=== PATIENT | female | born 1945 | race Caucasian/White ===

== ENCOUNTER 2023-09-22 11:26 | Outpatient (AMB) | payer OTHER, MEDICARE, SELFPAY ==
[2023-09-22 11:34] VITALS: BP 120/60; BMI 26.4
--- NOTE | 2023-09-22 11:34 | HO.NEPHOV ---
HPI HPI Comments History of Present Illness Details I had the privilege of seeing Iliana in follow-up for chronic kidney disease. 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 She has history of diabetes mellitus. Her blood sugar is fairly well controlled. She is on lipid-lowering agents. She is closely followed by her target man and PCP. She denies any chest pain, shortness of breath, nausea vomiting or diarrhea, pedal edema or urinary symptoms. She has not had any recent medication changes. She denies any orthostasis. She remains well hydrated. [facility] Medical History (Updated 09/26/23 @ 05:56 by Roly Aleman MD) CKD (chronic kidney disease) Surgical History (Updated 09/22/23 @ 11:40 by Soledad Kaiser MA) History of hip replacement Social History (Updated 09/22/23 @ 11:40 by Soledad Kaiser MA) Alcohol intake: never Patient Tobacco Use Status: Never used Tobacco Vital Signs 09/22/23 11:34 Height 5 ft 2 in Weight 144 lb 2 oz BMI 26.4 BP 120/60 Blood Pressure Location Lt brachial Position Sitting Physical Exam Vital Signs: Last Vital Signs BP 120/60 09/22/23 11:34 BMI result Body Mass Index 26.4 Const General: comfortable and no acute distress Orientation/consciousness: patient oriented x3 HEENT Head: Yes normocephalic Mouth: Normal oral and palatal mucosa present Eyes EOM: EOMs intact bilaterally Neck Neck: Yes supple Resp Auscultation: clear to auscultation bilaterally Cardio Jugular venous distension: no JVD Rate: regular rate Heart sounds: Murmur heart sound present GI Palpation (GI): Soft to palpation Auscultation: normal bowel sounds General: Yes no CVA tenderness Back/Spine/Pelvis Back: no CVA tenderness Skin General skin exam: no rashes or lesions noted Neuro General: patient oriented x3 and moves all extremities Extrem General: Yes no pedal edema Assessment & Plan Assessment & Plan (1) CKD (chronic kidney disease) stage 3, GFR 30-59 ml/min: Code(s): N18.30 - Chronic kidney disease, stage 3 unspecified Qualifiers: Chronic kidney disease stage 3 subtype: stage 3a (GFR 45-59) Qualified Code(s): N18.31 - Chronic kidney disease, stage 3a Plan Franny has mild CKD. She is diabetic. Her blood sugars are fairly well controlled. Her blood pressure is at goal. Volume status optimal. She does not take any ebjr-pfr-jedrgha medications. She is a candidate for Farxiga was a plan to initiate at the next visit after reviewing her lab work. Her medications were changed. All questions answered. Time spent reviewing data, documentation and patient encounter 23 minutes. Orders: Orders Calcium 09/22/23 N18.30 - Chronic kidney disease, stage 3 unspecified Electrolytes 09/22/23 N18.30 - Chronic kidney disease, stage 3 unspecified Blood Urea Nitrogen 09/22/23 N18.30 - Chronic kidney disease, stage 3 unspecified Creatinine 09/22/23 N18.30 - Chronic kidney disease, stage 3 unspecified Coding Level of Care Code Est Pt Level 3 (39261) Diagnoses Stage 3a chronic kidney disease N18.31 Chronic kidney disease stage 3 subtype: stage 3a (GFR 45-59)
== END 2023-09-22 12:12 | disposition home or self-care (01) ==
PROVIDERS: PCP Internal Medicine; Visit Provider Internal Medicine Nephrology
DX: E11.22 Type 2 diabetes mellitus with diabetic chronic kidney disease (principal); N18.31 Chronic kidney disease, stage 3a; Z87.74 Personal history of (corrected) congenital malformations of heart and circulatory system
CPT/HCPCS: 99213

== ENCOUNTER → 2023-09-22 11:26 | Outpatient (BNVA) | payer OTHER, MEDICARE, SELFPAY | PROVIDERS: PCP Internal Medicine; Visit Provider Internal Medicine Nephrology ==

== ENCOUNTER 2024-03-23 13:34 | Outpatient (AMB) | payer MEDICARE, SELFPAY ==
--- NOTE | 2024-03-23 13:36 | HO.NEPHOV ---
Vital Signs 03/23/24 13:38 Height 5 ft 2 in Weight 168 lb 8 oz BMI 30.8 BP 110/50 L Blood Pressure Location Lt brachial Position Sitting Intake Visit Reasons: 6M follow up/ Confirmed Rn Chemical Dependency Required: No Accompanied by: Self / Same As Patient Allergies No Known Allergies Allergy (Verified 03/23/24 13:43) HPI Comments Details: I had the privilege of seeing Iliana in follow-up for chronic kidney disease. 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 She has history of diabetes mellitus. Her blood sugar is fairly well controlled. She is on lipid-lowering agents. She is closely followed by her rigging supervisor and PCP. She denies any chest pain, nausea vomiting or diarrhea, pedal edema or urinary symptoms. She recently had hospitalization for CHF. She was started on diuretics as well as metoprolol & Spironolactone . She denies any orthostasis. She feels improved. She weighs herself daily. [facility] Medical History (Updated 09/26/23 @ 05:56 by Roly Aleman MD) CKD (chronic kidney disease) Surgical History (Updated 09/22/23 @ 11:40 by Soledad Kaiser MA) History of hip replacement Social History (Updated 09/22/23 @ 11:40 by Soledad Kaiser MA) Alcohol intake: never Patient Tobacco Use Status: Never used Tobacco Physical Exam Const General: comfortable and no acute distress Orientation/consciousness: patient oriented x3 HEENT Head: Yes normocephalic Mouth: Normal oral and palatal mucosa present Eyes EOM: EOMs intact bilaterally Neck Neck: Yes supple Resp Auscultation: clear to auscultation bilaterally Cardio Jugular venous distension: no JVD Rate: regular rate GI Palpation (GI): Soft to palpation Auscultation: normal bowel sounds General: Yes no CVA tenderness Back/Spine/Pelvis Back: no CVA tenderness Skin General skin exam: no rashes or lesions noted Neuro General: patient oriented x3 and moves all extremities Extrem General: Yes no pedal edema Results Reviewed Nephrology Results: No Data to Display Assessment & Plan Assessment & Plan (1) CKD (chronic kidney disease) stage 3, GFR 30-59 ml/min: Code(s): N18.30 - Chronic kidney disease, stage 3 unspecified Category: Medical Qualifiers: Chronic kidney disease stage 3 subtype: stage 3a (GFR 45-59) Qualified Code(s): N18.31 - Chronic kidney disease, stage 3a Plan Iliana has mild CKD. She is diabetic. Her blood sugars are fairly well controlled. Her blood pressure is at goal. Volume status optimal. She does not take any egxm-stm-cegzhkw medications. She is on metoprolol , lasix and spironolactone. She is a candidate for Farxiga was a plan to initiate at the next visit after D/Cing metformin . All questions answered. Orders: Orders Creatinine Today N18.31 - Chronic kidney disease, stage 3a Electrolytes Today N18.31 - Chronic kidney disease, stage 3a Blood Urea Nitrogen Today N18.31 - Chronic kidney disease, stage 3a Coding Level of Care Code Est Pt Level 4 (78208) Diagnoses Stage 3a chronic kidney disease N18.31 Chronic kidney disease stage 3 subtype: stage 3a (GFR 45-59)
[2024-03-23 13:38] VITALS: BP 110/50; BMI 30.8
== END 2024-03-23 14:07 | disposition home or self-care (01) ==
LOC: HO.HKAS 13:34
PROVIDERS: PCP Internal Medicine; Visit Provider Internal Medicine Nephrology
DX: N18.31 Chronic kidney disease, stage 3a (principal)
CPT/HCPCS: 99214

== ENCOUNTER → 2024-03-23 13:34 | Outpatient (BNVA) | payer MEDICARE, SELFPAY | PROVIDERS: PCP Internal Medicine; Visit Provider Internal Medicine Nephrology | DX: E11.22 Type 2 diabetes mellitus with diabetic chronic kidney disease (principal); N18.31 Chronic kidney disease, stage 3a | CPT/HCPCS: 99212 ==

== ENCOUNTER 2024-09-21 09:53 | Outpatient (AMB) | payer MEDICARE, SELFPAY ==
--- NOTE | 2024-09-21 10:18 | HO.NEPHOV ---
Vital Signs 09/21/24 10:19 Height 5 ft 2 in Weight 146 lb BMI 26.7 BP 124/68 Blood Pressure Location Lt brachial Position Sitting Intake Visit Reasons: 6 mon follow up-[facility] Motor Tune Up Specialist Required: No Accompanied by: Self / Same As Patient Allergies No Known Allergies Allergy (Verified 09/21/24 10:19) HPI Comments Details: Iliana was seen in follow-up for chronic kidney disease. 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 She has history of diabetes mellitus. Her blood sugar is fairly well controlled. She is on lipid-lowering agents. She is closely followed by her groundskeeper and PCP. She denies any chest pain, nausea vomiting or diarrhea, pedal edema or urinary symptoms. She has H/O hospitalization for CHF. She was started on diuretics as well as metoprolol & Spironolactone . She denies any orthostasis. She feels improved. She weighs herself daily [facility] Medical History (Updated 09/26/23 @ 05:56 by Roly Aleman MD) CKD (chronic kidney disease) Surgical History History of hip replacement Social History Alcohol intake: never Patient Tobacco Use Status: Never used Tobacco Review of Systems Const All systems reviewed & are unremarkable except as noted in HPI and below Physical Exam Vital Signs: Last Vital Signs BP 124/68 09/21/24 10:19 BMI result Body Mass Index 26.7 Const General: comfortable and no acute distress Orientation/consciousness: patient oriented x3 HEENT Head: Yes normocephalic Mouth: Normal oral and palatal mucosa present Eyes EOM: EOMs intact bilaterally Neck Neck: Yes supple Resp Auscultation: clear to auscultation bilaterally Cardio Jugular venous distension: no JVD Rate: regular rate GI Palpation (GI): Soft to palpation Auscultation: normal bowel sounds General: Yes no CVA tenderness Back/Spine/Pelvis Back: no CVA tenderness Skin General skin exam: no rashes or lesions noted Neuro General: patient oriented x3 and moves all extremities Extrem General: Yes no pedal edema Results Reviewed Nephrology Results: No Data to Display Assessment & Plan Assessment & Plan (1) CKD (chronic kidney disease) stage 3, GFR 30-59 ml/min: Code(s): N18.30 - Chronic kidney disease, stage 3 unspecified Category: Medical Qualifiers: Chronic kidney disease stage 3 subtype: stage 3a (GFR 45-59) Qualified Code(s): N18.31 - Chronic kidney disease, stage 3a Carlos Barrientos has mild CKD. She is diabetic. Her blood sugars are fairly well controlled. Her blood pressure is at goal. Volume status optimal. She does not take any vnmy-wev-tlgxbjv medications. She is on metoprolol , lasix and spironolactone. I started her on Jardiance 10 mg daily. She can hold metformin . F/U labs ordered. All questions answered Orders: Orders Electrolytes 3 Months N18.31 - Chronic kidney disease, stage 3a Creatinine 3 Months N18.31 - Chronic kidney disease, stage 3a Blood Urea Nitrogen 3 Months N18.31 - Chronic kidney disease, stage 3a Medications: New empagliflozin (Jardiance) 10 mg PO DAILY 30 tabs 6RF Coding Level of Care Code Est Pt Level 4 (39305) Diagnoses Stage 3a chronic kidney disease N18.31 Chronic kidney disease stage 3 subtype: stage 3a (GFR 45-59)
[2024-09-21 10:19] VITALS: BP 124/68; BMI 26.7
== END 2024-09-21 10:48 | disposition home or self-care (01) ==
LOC: HO.HKAS 09:53
PROVIDERS: PCP Internal Medicine; Visit Provider Internal Medicine Nephrology
DX: N18.31 Chronic kidney disease, stage 3a (principal)
CPT/HCPCS: 99214

== ENCOUNTER → 2024-09-21 09:53 | Outpatient (BNVA) | payer MEDICARE, SELFPAY | PROVIDERS: PCP Internal Medicine; Visit Provider Internal Medicine Nephrology | DX: N18.31 Chronic kidney disease, stage 3a (principal); Z79.899 Other long term (current) drug therapy | CPT/HCPCS: 99212 ==

== ENCOUNTER 2025-04-07 10:12 | Outpatient (AMB) | payer MEDICARE, SELFPAY ==
--- NOTE | 2025-04-07 10:17 | HO.NEPHOV ---
Vital Signs 04/07/25 10:39 Height 5 ft 2 in Weight 138 lb 8 oz BMI 25.3 BP 122/60 Blood Pressure Location Lt brachial Position Sitting Intake Visit Reasons: [id number] Youth Coordinator Required: No Accompanied by: Self / Same As Patient Allergies No Known Allergies Allergy (Verified 04/07/25 10:38) HPI Comments Details: Iliana was seen in follow-up for chronic kidney disease. 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 She has history of diabetes mellitus. Her blood sugar is fairly well controlled. She is on lipid-lowering agents. She is closely followed by her tank truck milk receiver and PCP. She denies any chest pain, nausea vomiting or diarrhea, pedal edema or urinary symptoms. She has H/O hospitalization for CHF. She is on metoprolol & Spironolactone . Her K is high and her serum creatinine has gone up from baseline. She denies any orthostasis. She feels improved. She weighs herself daily [facility] Medical History (Updated 09/26/23 @ 05:56 by Roly Aleman MD) CKD (chronic kidney disease) Surgical History History of hip replacement Social History Alcohol intake: never Patient Tobacco Use Status: Never used Tobacco Review of Systems Const All systems reviewed & are unremarkable except as noted in HPI and below Physical Exam Vital Signs: Last Vital Signs BP 122/60 04/07/25 10:39 BMI result Body Mass Index 25.3 Const General: comfortable and no acute distress Orientation/consciousness: patient oriented x3 HEENT Head: Yes normocephalic Mouth: Normal oral and palatal mucosa present Eyes EOM: EOMs intact bilaterally Neck Neck: Yes supple Resp Auscultation: clear to auscultation bilaterally Cardio Jugular venous distension: no JVD Rate: regular rate GI Palpation (GI): Soft to palpation Auscultation: normal bowel sounds General: Yes no CVA tenderness Back/Spine/Pelvis Back: no CVA tenderness Skin General skin exam: no rashes or lesions noted Neuro General: patient oriented x3 and moves all extremities Extrem General: Yes no pedal edema Results Reviewed Nephrology Results: No Data to Display Assessment & Plan Assessment & Plan (1) CKD (chronic kidney disease) stage 3, GFR 30-59 ml/min: Code(s): N18.30 - Chronic kidney disease, stage 3 unspecified Category: Medical Qualifiers: Chronic kidney disease stage 3 subtype: stage 3a (GFR 45-59) Qualified Code(s): N18.31 - Chronic kidney disease, stage 3a Plan Iliana has mild CKD. She is diabetic. Her blood sugars are fairly well controlled. Her blood pressure is at goal. Volume status optimal. She does not take any izds-ywd-veisqgk medications. She is on metoprolol and spironolactone. I started her back on lasix 20 mg barrett other day and held her Spironolactone given hyperkalemia.She can continue on Jardiance 10 mg daily. She can hold metformin . F/U labs ordered. All questions answered Orders: Orders Protein Creatinine Ratio, Ur 3 Months N18.31 - Chronic kidney disease, stage 3a Creatinine 3 Months N18.31 - Chronic kidney disease, stage 3a Electrolytes 3 Months N18.31 - Chronic kidney disease, stage 3a Blood Urea Nitrogen 3 Months N18.31 - Chronic kidney disease, stage 3a Electrolytes 6 Weeks N18.31 - Chronic kidney disease, stage 3a Blood Urea Nitrogen 6 Weeks N18.31 - Chronic kidney disease, stage 3a Creatinine 6 Weeks N18.31 - Chronic kidney disease, stage 3a Medications: New furosemide 20 mg PO Q OTHER DAY 90 tabs 3RF Coding Level of Care Code Est Pt Level 4 (71503) Diagnoses Stage 3a chronic kidney disease N18.31 Chronic kidney disease stage 3 subtype: stage 3a (GFR 45-59)
--- OUTSIDE RECORDS SUMMARY | 2025-04-07 10:38 | XMS_ITS | Clinical Summary ---
Author Organization [email or web address] Address [address] [place] [address] Care Team Providers Care Client Integration Manager Name Role Phone Megha Mooney MD Primary Care Provider [phone] Surgical History Surgery Date Site/Laterality Comments TIBIA FRACTURE SURGERY PROCEDURE:TIBIA FRACTURE SURGERY APPENDECTOMY PROCEDURE:APPENDECTOMY Medical History Medical History Date Comments Hyperlipidemia DX:Hyperlipidemi a Hypertension DX:Hypertension Heart murmur DX:Heart murmur Valvular disease DX:Valvular dis ease Congenital heart disease DX:Jean enital heart disease 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);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 Aortic regurgitation DX:Aortic r egurgitation;COMMENT:now not apparent-echo 2015 Tricuspid regurgitation DX:Tricu spid regurgitation Hx of echocardiogram 03/2018 DX:Hx of ec hocardiogram;COMMENT:no change; ef -45% mild to mod 'TR'/MR Abnormal EKG DX:Abnormal EKG Pulmonary embolism (CMS/HCC V24, CMS/HCC V28) DX:Pulmonary embolism (HCC) Pulmonary embolism (CMS/HCC V24, CMS/HCC V28) DX:Pulmonary embolism (HCC) Diabetes mellitus (CMS/HCC V 24, CMS/HCC V28) DX:Diabetes mellitus (HCC) Acute renal insufficiency DX:Acu te renal insufficiency Hyperlipidemia DX:Hyperlipidemi a Social History Tobacco Use Types Packs/Day Years Used Date Smoking Tobacco: Never Smokeless Tobacco: Never Alcohol Use Standard Drinks/Week Comments No 0 (1 standard drink = 0.6 oz pur e alcohol) Comments Unknown Sex and Gender Information Value Date Recorded Sex Assigned at Not on file Legal Sex Female 11:09 AM EST Gender Identity Not on file Sexual Orientation Not on file Obstetrics History Last Filed Vital Signs Vital Sign Reading Time Taken Comments Blood Pressure 128/80 05/24/2024 2:13 PM EDT Pulse 86 05/24/2024 2:13 PM EDT Temperature - - Respiratory Rate - - Oxygen Saturation - - Inhaled Oxygen Concentration - - Weight 63 kg (139 lb) 05/24/2024 2:13 PM EDT Height 157.5 cm (5' 2 ) 05/24/2024 2:13 PM EDT Body Mass Index 25.42 05/24/2024 2:13 PM EDT Plan of Treatment Upcoming Encounters Date Type Department Care Team ([facility] st Contact Info) Description 04/25/2025 12:00 PM EDT Office Visit [facility] - [place] [address] [facility] [address] [place] [address] Omid Stafford MD [address] [facility] [address] [place], [place] [id number] Health Maintenance Due Date Last Done Comments DTaP,Tdap,and Td Vaccines (1 - Tdap) 1966 Pneumococcal Vaccine: 50+ Years (1 of 2 - PCV) 1966 Zoster Vaccines (1 of 2) 1997 RSV Immunization Adult Patients (1 - 1-dose 75+ series) 2022 Cholesterol Screening (Lipid Panel) 10/25/2022 Depression Screening 10/25/2022 Falls Risk Assessment 10/25/2022 Hepatitis C Screening 10/25/2022 Osteoporosis Screening (Bone Density Screening) 10/25/2022 Social Influencers of Health Screening 10/25/2022 Hypertension/CHF/CAD Annual BMP Blood Test 10/27/2022 COVID-19 Vaccine ( - 2023-2 5 season) 2024 Medicare Annual Wellness Visit 07/28/2024 07/28/2023 Influenza Vaccine (Season Ended) 2025 07/31/2020, 07/22/2019 HIB Vaccines Aged Out No longer eligi ble based on patient's age to complete this topic HPV Vaccines Aged Out No longer eligi ble based on patient's age to complete this topic Hepatitis A Vaccines Aged Out No long er eligible based on patient's age to complete this topic Hepatitis B Vaccines Aged Out No long er eligible based on patient's age to complete this topic IPV Vaccines Aged Out No longer eligi ble based on patient's age to complete this topic MMR Vaccines Aged Out No longer eligi ble based on patient's age to complete this topic Meningococcal ACWY Vaccine Aged Out N o longer eligible based on patient's age to complete this topic Meningococcal B Vaccine Aged Out No l onger eligible based on patient's age to complete this topic RSV Immunization Patients Under 20 months Aged Out No longer eligible b ased on patient's age to complete this topic Varicella Vaccines Aged Out No longer eligible based on patient's age to complete this topic Insurance MEDICARE Care Teams Client Integration Manager Relationship Specialty Start Date End Date Megha Mooney MD [address] [place] [address] PCP - General Internal Medicine 01/24/16
--- OUTSIDE RECORDS SUMMARY | 2025-04-07 10:38 | XMS_ITS | Clinical Summary ---
Author Organization [facility] Address [address] [place] [address] Care Team Providers Care Slip Caster Name Role Phone Megha Mooney MD Primary Care Provider [phone] Allergies Active Allergy Reactions Criticality Noted Date Comments Alcohol Hives 12/30/2016 Kiwi Hives 12/30/2016 Medications Medication Sig Dispensed Refills Start Date End Date Status Insulin Syringe-Needle U-100 (INSULIN SYRINGE 1CC/30GX5/16 ) 30G X 5/16 1 ML MISC Use with the Lantus daily 100 each 6 01/03/2017 Active metFORMIN (GLUCOPHAGE) tablet 500 mg TAKE ONE TABLET BY MOUTH TWICE DAILY WITH MEALS 60 tablet 11 02/19/2018 Active Additional Information Patient taking differently: 500 mg Oral Daily, Reason: Other (pt. takes once a day, instead of BID), Reported on 03/05/2024 LANTUS 100 UNIT/ML injection Inject 20 Units under the skin every night at bedtime. 0 02/16/2018 Active nortriptyline (PAMELOR) 25 MG capsule Take 1 capsule (25 mg total) by mouth daily. 0 01/14/2022 Active furosemide (LASIX) 20 MG tablet Take 1 tablet (20 mg total) by mouth daily. 0 02/23/2024 Active metoprolol succinate (TOPROL-XL) 24 hr tablet 50 mg Take 1 tablet (50 mg total) by mouth daily. 0 02/23/2024 Active spironolactone (ALDACTONE) tablet 25 mg Take 1 tablet (25 mg total) by mouth daily. 0 02/23/2024 Active rosuvastatin (CRESTOR) tablet 20 mg Take 1 tablet by mouth once daily 90 tablet 3 04/30/2024 Active Active Problems Problem Noted Date Diagnosed Date Anemia 04/03/2018 Chronic renal disease, stage II 03/24/2018 Hypercoagulable state 03/24/2018 Dilated cardiomyopathy 03/24/2018 Essential hypertension 12/23/2017 Non-rheumatic mitral regurgitation 12/23/2017 Nonrheumatic aortic valve insufficiency 12/23/19 18 History of pulmonary embolism 12/23/2017 Bilateral leg edema 12/23/2017 Pulmonary embolism 12/30/2016 Hyperglycemia 12/30/2016 ABRAHAM (acute kidney injury) 12/30/2016 Hyponatremia 12/30/2016 Syncope 12/30/2016 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 12/24/2016 Non-rheumatic tricuspid valve insufficiency 05/2017 SANFORD (dyspnea on exertion) 12/24/2016 Essential hypertension, benign 12/19/2015 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) 12/19/2015 Hyperlipemia 12/19/2015 Congenital heart disease 12/19/2015 Abnormal EKG 12/19/2015 Shortness of breath dyspnea 12/19/2015 Social History Tobacco Use Types Packs/Day Years Used Date Smoking Tobacco: Never Passive Smoke Exposure: Never Smokeless Tobacco: Never Tobacco Cessation:Counseling Given: Not Answered Alcohol Use Standard Drinks/Week Comments No 0 (1 standard drink = 0.6 oz pur e alcohol) Sex and Gender Information Value Date Recorded Sex Assigned at Female 08/02/2024 11:03 AM EDT Gender Identity Not on file Sexual Orientation Not on file Job Start Date Occupation Industry Not on file Not on file Not on file Last Filed Vital Signs Vital Sign Reading Time Taken Comments Blood Pressure 128/80 05/24/2024 2:13 PM EDT Pulse 86 05/24/2024 2:13 PM EDT Temperature 36.3 ??C (97.3 ??F) 04/03/2022 1:25 PM ED T Respiratory Rate 22 01/03/2017 8:03 AM EST Oxygen Saturation 97% 05/24/2024 2:13 PM EDT Inhaled Oxygen Concentration - - Weight 63 kg (139 lb) 05/24/2024 2:13 PM EDT Height 157.5 cm (5' 2 ) 05/24/2024 2:13 PM EDT Body Mass Index 25.42 05/24/2024 2:13 PM EDT Plan of Treatment Health Maintenance Due Date Last Done Comments Hepatitis C Screening 1945 COVID-19 Vaccine (#1) 1945 Pneumococcal Vaccine (1 of 2 - PCV) 1953 Depression Screening 1959 Preventative Health Evaluation 1965 DTap / Tdap / Td (1 - Tdap) 1966 Shingrix-Zoster Vaccine (1 of 2) 1997 Fall Risk Assessment 2012 Osteoporosis Screening (DEXA Scan) 2012 RSV Adult > 60+ Yrs or Pregn ant (1 - 1-dose 75+ series) 2022 Influenza Vaccine (#1) 2024 Hepatitis B Vaccines Aged Out No long er eligible based on patient's age to complete this topic RSV Ped < 20 months Aged Out No longe r eligible based on patient's age to complete this topic Advance Directives For more information, please contact: [phone] Latest Code Status on File Code Status Date Activated Date Inactivated Comments DNR 12/30/2016 10:56 PM 01/03/2017 5:59 PM This code status was ascertained in the following way: discussion with patient. Code Status History Code Status Date Activated Date Inactivated Comments Full Code 12/30/2016 7:37 PM 12/30/2016 10:56 PM This code status was ascertained in the following way: discussion with patient. Care Teams Slip Caster Relationship Specialty Start Date End Date Megha Mooney MD [address] [place] [id number] PCP - General Internal Medicine 01/24/16
--- OUTSIDE RECORDS SUMMARY | 2025-04-07 10:38 | XMS_ITS | Clinical Summary ---
Author Organization [facility] Address [address] [facility] [address] [place] [address] Phone Care Team Providers Care Director Of Integrated Marketing Name Role Phone Megha Mooney MD Primary Care Provider [phone] Allergies Active Allergy Reactions Criticality Noted Date Comments Alcohol Hives,Other (see comments) 7 Kiwi Extract Hives 12/30/2016 Medications aspirin (ST ENRIKE) 81 MG EC tablet Take 1 tablet by mouth 1 (one) time each day Active insulin glargine (Lantus) 100 UNIT/ML injection Inject 10 Units under the skin 1 (one) time each day Active metFORMIN (GLUCOPHAGE) 500 MG tablet Take 1 tablet by mouth 2 (two) times a day 01/25/2019 Active nortriptyline (PAMELOR) 25 MG capsule Take 1 capsule by mouth at bed time Active rosuvastatin (CRESTOR) 20 MG tablet Take 1 tablet by mouth 1 (one) time each day 08/18/2020 Active Active Problems Problem Noted Date Diagnosed Date Acute nontraumatic kidney injury 04/10/2021 Stage 3a chronic kidney disease 04/10/2021 Anemia 04/03/2018 Acute nontraumatic kidney injury 12/30/2016 Hyponatremia 12/30/2016 Benign essential hypertension 12/19/2015 Resolved Problems Problem Noted Date Diagnosed Date Resolved Date Dilated cardiomyopathy 03/24/201804/10 Hypercoagulable state 03/24/20182020 Bilateral lower limb edema 12/23/2017 0 04/10/2021 H/O: pulmonary embolus 12/23/201704/10 Nonrheumatic aortic valve insufficiency 12/23/2017 04/10/2021 Non-rheumatic mitral regurgitation 12/23/2017 04/10/2021 Hyperglycemia 12/30/2016 04/10/2021 Pulmonary embolism 12/30/2016 1 Syncope 12/30/2016 04/10/2021 Dyspnea on exertion 12/24/2016 04/10/20 21 Tricuspid incompetence, non-rheumatic 12/24/2016 04/10/2021 Congenital heart disease 12/19/2015 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 04/10/2021 Dyspnea 12/19/2015 04/10/2021 Electrocardiogram abnormal 12/19/2015 0 04/10/2021 Hyperlipidemia 12/19/2015 04/10/2021 Family History Medical History Relation Comments Heart disease Father Diabetes Mother Type II Heart disease Mother Relation Status Comments Father Mother Alive Social History Tobacco Use Types Packs/Day Years Used Date Smoking Tobacco: Never Smokeless Tobacco: Never Tobacco Cessation:Counseling Given: Not Answered Alcohol Use Standard Drinks/Week Comments No 0 (1 standard drink = 0.6 oz pur e alcohol) Comments Unknown Sex and Gender Information Value Date Recorded Sex Assigned at Not on file Legal Sex Female 9:37 AM EDT Gender Identity Not on file Sexual Orientation Not on file Last Filed Vital Signs Vital Sign Reading Time Taken Comments Blood Pressure 122/60 09/09/2022 3:09 PM EDT Pulse 86 09/09/2022 3:09 PM EDT Temperature - - Respiratory Rate - - Oxygen Saturation 97% 10/15/2021 2:38 PM EST Inhaled Oxygen Concentration - - Weight 69.1 kg (152 lb 6.4 oz) 09/09/2022 3:09 P M EDT Height 158.8 cm (5' 2.5 ) 05/09/2020 12:00 PM ED T Body Mass Index 27.43 05/09/2020 12:00 PM EDT Plan of Treatment Health Maintenance Due Date Last Done Comments Pneumococcal Vaccine: 50+ Ye ars (1 of 2 - PCV) 1964 Influenza Vaccine (Season Ended) 2025 Hepatitis B Vaccine Aged Out No longe r eligible based on patient's age to complete this topic Insurance [address] [place] [address] [facility] Medicare [address] [place] [address] [facility] Medicare Care Teams Director Of Integrated Marketing Relationship Specialty Start Date End Date Megha Mooney MD [address] [place] [address], [address] [place] [address] PCP - General 11/27/20
--- OUTSIDE RECORDS SUMMARY | 2025-04-07 10:38 | XMS_ITS ---
Author Name [facility] Organization Unknown History of Medication Use Medication Directions Dispensed Refills Start Date End Date Stat metoprolol succinate (TOPROL-XL) 24 hr tablet 50 mg Take 1 tablet (50 mg total) by mouth daily. 02/23/2024 active nortriptyline (PAMELOR) 25 MG capsule Take 1 capsule (25 mg total) by mouth daily. 01/14/2022 active metFORMIN (GLUCOPHAGE) tablet 500 mg TAKE ONE TABLET BY MOUTH TWICE DAILY WITH MEALS 02/19/2018 active LANTUS 100 UNIT/ML injection Inject 20 Units under the skin every night at bedtime. 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 active 7 ProblemAct CTTHNEMG Abnormal EKG active 2 ProblemAct CTTHNEMG Bilateral leg edema active 6 ProblemAct CTTHNEMG History of pulmonary embolism active 6 ProblemAct CTTHNEMG Hyponatremia active 2016-12-18 3 ProblemAct CTTHNEMG Congenital heart disease active 2015-12 2 ProblemAct CTTHNEMG Hypercoagulable state active 8 ProblemAct CTTHNEMG Non-rheumatic mitral regurgitation active 6 ProblemAct CTTHNEMG Shortness of breath dyspnea active 2 ProblemAct CTTHNEMG Essential hypertension active 6 ProblemAct CTTHNEMG Nonrheumatic aortic valve insufficiency active 6 ProblemAct CTTHNEMG ABRAHAM (acute kidney injury) active 2016-12-18 3 ProblemAct CTTHNEMG Anemia active 2018-03-17 8 ProblemAct CTTHNEMG Hyperglycemia active 2016-12-18 3 ProblemAct CTTHNEMG Non-rheumatic tricuspid valve insufficiency active 7 ProblemAct CTTHNEMG Pulmonary embolism active 2016-12-18 3 ProblemAct CTTHNEMG Chronic renal disease, stage II active 8 ProblemAct CTTHNEMG HFrEF (heart failure with reduced ejection fraction) (HCC) active EncounterDiagnosisAct CTT HNEMG Hyperlipemia active 2 ProblemAct CTTHNEMG Dilated cardiomyopathy active 8 ProblemAct CTTHNEMG Pure hypercholesterolemia active EncounterDiagnosisAct CTTHNEMG SANFORD (dyspnea on exertion) active 7 ProblemAct CTTHNEMG
[2025-04-07 10:39] VITALS: BP 122/60; BMI 25.3
== END 2025-04-07 11:05 | disposition home or self-care (01) ==
LOC: HO.HKAS 10:12
PROVIDERS: PCP Internal Medicine; Visit Provider Internal Medicine Nephrology
DX: N18.31 Chronic kidney disease, stage 3a (principal)
CPT/HCPCS: 99214

== ENCOUNTER → 2025-04-07 10:12 | Outpatient (BNVA) | payer MEDICARE, SELFPAY | PROVIDERS: PCP Internal Medicine; Visit Provider Internal Medicine Nephrology | DX: E11.22 Type 2 diabetes mellitus with diabetic chronic kidney disease (principal); N18.31 Chronic kidney disease, stage 3a; Z79.899 Other long term (current) drug therapy | CPT/HCPCS: 99212 ==

== ENCOUNTER 2025-07-12 10:09 | Outpatient (AMB) | payer MEDICARE, SELFPAY ==
--- NOTE | 2025-07-12 10:48 | HO.NEPHOV_ITS ---
Vital Signs 07/12/25 10:50 Height 5 ft 2 in Weight 144 lb 6 oz BMI 26.4 BP 118/60 Blood Pressure Location Lt brachial Position Sitting Pulse 58 Pulse Source Pulse Oximeter Pulse Oximetry (%) 94 Oxygen Delivery Method Room Air Intake Visit Reasons: 3 mo follow up-[facility] Gis Analyst Required: No Accompanied by: Self / Same As Patient Allergies No Known Allergies Allergy (Verified 07/12/25 10:49) HPI Comments Details: Iliana was seen in follow-up for chronic kidney disease. 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 She has history of diabetes mellitus. Her blood sugar is fairly well controlled. She is on lipid-lowering agents. She is closely followed by her electrical maintenance engineer and PCP. She denies any chest pain, nausea vomiting or diarrhea, pedal edema or urinary symptoms. She has H/O hospitalization for CHF. She is on metoprolol & Spironolactone .She denies any orthostasis.She weighs herself daily. She has had high A1c and was started on Metformin 500 mg daily. She is on Jardiance 10 mg as well . Her HbA1c had improved from 11 to 8.0 [facility] Medical History (Updated 09/26/23 @ 05:56 by Roly Aleman MD) CKD (chronic kidney disease) Surgical History History of hip replacement Social History Alcohol intake: never Patient Tobacco Use Status: Never used Tobacco Review of Systems Const All systems reviewed & are unremarkable except as noted in HPI and below Physical Exam Const General: comfortable and no acute distress Orientation/consciousness: patient oriented x3 HEENT Head: Yes normocephalic Mouth: Normal oral and palatal mucosa present Eyes EOM: EOMs intact bilaterally Neck Neck: Yes supple Resp Auscultation: clear to auscultation bilaterally Cardio Jugular venous distension: no JVD Rate: regular rate GI Palpation (GI): Soft to palpation Auscultation: normal bowel sounds General: Yes no CVA tenderness Back/Spine/Pelvis Back: no CVA tenderness Skin General skin exam: no rashes or lesions noted Neuro General: patient oriented x3 and moves all extremities Extrem General: Yes no pedal edema Assessment & Plan Assessment & Plan (1) CKD (chronic kidney disease) stage 3, GFR 30-59 ml/min: Code(s): N18.30 - Chronic kidney disease, stage 3 unspecified Category: Medical Qualifiers: Chronic kidney disease stage 3 subtype: stage 3a (GFR 45-59) Qualified Code(s): N18.31 - Chronic kidney disease, stage 3a Plan Iliana has mild CKD. She is diabetic. Her blood sugars are better controlled now. Her blood pressure is at goal. Volume status optimal. She does not take any [id number] medications. She is on metoprolol and spironolactone and lasix 20 mg barrett other day .I increased her Jardiance to 25 mg daily. She can hold metformin when her A1c is better. F/U labs ordered. All questions answered Orders: Orders Creatinine 4 Months N18.31 - Chronic kidney disease, stage 3a Electrolytes 4 Months N18.31 - Chronic kidney disease, stage 3a Hemoglobin A1c 4 Months N18.31 - Chronic kidney disease, stage 3a Blood Urea Nitrogen 4 Months N18.31 - Chronic kidney disease, stage 3a Protein Creatinine Ratio, Ur 4 Months N18.31 - Chronic kidney disease, stage 3a Medications: Changed From empagliflozin (Jardiance) 10 mg PO DAILY 30 tabs 11RF To empagliflozin 25 mg PO DAILY 30 tabs 11RF 30 days Coding Level of Care Code Est Pt Level 4 (50733) Diagnoses Stage 3a chronic kidney disease N18.31 Chronic kidney disease stage 3 subtype: stage 3a (GFR 45-59)
[2025-07-12 10:50] VITALS: BP 118/60; PULSE 58; O2SAT 94; BMI 26.4
--- OUTSIDE RECORDS SUMMARY | 2025-07-12 10:52 | XMS_ITS ---
Author Name [facility] Organization Unknown History of Medication Use Medication Directions Dispensed Refills Start Date End Date Stat Jardiance 10 mg tablet Take 1 tablet (10 mg total) by mouth 1 (one) time each day. 04/15/2025 active metoprolol succinate (TOPROL-XL) 24 hr tablet 50 mg Take 1 tablet (50 mg total) by mouth daily. 02/23/2024 active nortriptyline (PAMELOR) 25 MG capsule Take 1 capsule (25 mg total) by mouth daily. 01/14/2022 active nortriptyline (PAMELOR) 25 mg capsule Take 1 capsule (25 mg total) by mouth 1 (one) time each day. 02/08/2019 active metFORMIN (GLUCOPHAGE) 500 mg tablet Take 1 tablet (500 mg total) by mouth 2 (two) times a day. 02/19/2018 active metFORMIN (GLUCOPHAGE) tablet 500 mg TAKE ONE TABLET BY MOUTH TWICE DAILY WITH MEALS 02/19/2018 active LANTUS 100 UNIT/ML injection Inject 20 Units under the skin every night at bedtime. 02/16/2018 active aspirin 81 mg EC tablet Take 1 tablet (81 mg total) by mouth 1 (one) time each day. active furosemide (LASIX) 20 mg tablet Take 1 tablet (20 mg total) by mouth every other day. active Lantus U-100 Insulin 100 unit/mL injection Inject 20 Units under the skin at bedtime. active metoprolol succinate (TOPROL-XL) 50 mg 24 hr tablet Take 1 tablet (50 mg total) by mouth 1 (one) time each day. active rosuvastatin (CRESTOR) 20 mg tablet Take 1 tablet (20 mg total) by mouth 1 (one) time each day. active Allergies Allergen Reaction Severity Comment Documented Date Source Statu s KIWI HIVES 12/30/2016 CTTHNEMG active KIWI (ACTINIDIA CHINENSIS) HIVES 12/30/2016 CT_THSFRAN active ALCOHOL OTHER CT_THSFRAN Problems Problem Status Onset Date Problem Type Date of Resolution Source Syncope active ProblemAct CTTHNEMG Shortness of breath dyspnea active ProblemAct CTTHNEMG Essential hypertension active ProblemAct CTTHNEMG Congenitally corrected transposition of great arteries active ProblemAct CT_THSFRAN History of pulmonary embolism active ProblemAct CTTHNEMG Chronic combined systolic and diastolic congestive heart failure (CMS/HCC V24, CMS/HCC V28) active ProblemAct CT_THSFRAN Hyponatremia active ProblemAct CTTHNEMG Non-rheumatic mitral regurgitation active ProblemAct CTTHNEMG Congenital heart disease active 2015-12 ProblemAct CTTHNEMG SANFORD (dyspnea on exertion) active ProblemAct CTTHNEMG DCM (dilated cardiomyopathy) (CMS/HCC V24, CMS/HCC V28) active ProblemAct CT_THSFRAN HFrEF (heart failure with reduced ejection fraction) ([facility]) active EncounterDiagnosisAct CTT HNEMG Hyperglycemia active ProblemAct CTTHNEMG SANFORD (dyspnea on exertion) active EncounterDiagnosisAct CT_THS [place] Chronic renal disease, stage II active ProblemAct CTTHNEMG Non-rheumatic tricuspid valve insufficiency active ProblemAct CTTHNEMG 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 active ProblemAct CTTHNEMG Shortness of breath active ProblemAct CT_THSFRAN ABRAHAM (acute kidney injury) active ProblemAct CTTHNEMG History of pulmonary embolism active ProblemAct CT_THSFRAN Anemia active ProblemAct CTTHNEMG Hypercoagulable state active ProblemAct CTTHNEMG Pulmonary hypertension (CMS/HCC V24, CMS/HCC V28) active ProblemAct CT_THSFRAN Hyperlipemia active ProblemAct CTTHNEMG Bilateral leg edema active ProblemAct CTTHNEMG Pure hypercholesterolemia active EncounterDiagnosisAct CTTHNEMG Abnormal EKG active ProblemAct CTTHNEMG Nonrheumatic aortic valve insufficiency active ProblemAct CTTHNEMG Pulmonary embolism active ProblemAct CTTHNEMG Dilated cardiomyopathy active ProblemAct CTTHNEMG Encounters Encounter Type Encounter Reason Primary Diagnosis Location Date Ambulatory Cardiomyopathy Shortness of breath [facility] 04/25/2025 Care Team Organization Name Specialty Phone Email Start Date End Da te [facility] 04/26/2025 [facility] 04/25/2025
--- OUTSIDE RECORDS SUMMARY | 2025-07-12 10:52 | XMS_ITS | Clinical Summary ---
Author Organization [facility] [place] Address [address] [place] [address] Phone Care Team Providers Care Wooden Box Maker Name Role Phone Megha Mooney MD Primary Care Provider [phone] Allergies Active Allergy Reactions Criticality Noted Date Comments Alcohol Hives,Other 12/30/2016 Kiwi (Actinidia Chinensis) Hives 7 Medications aspirin 81 mg EC tablet Take 1 tablet (81 mg total) by mouth 1 (one) time each day. Active Jardiance 10 mg tablet Take 1 tablet (10 mg total) by mouth 1 (one) time each day. 5 Active furosemide (LASIX) 20 mg tablet Take 1 tablet (20 mg total) by mouth every other day. Active Lantus U-100 Insulin 100 unit/mL injection Inject 20 Units under the skin at bedtime. Active metFORMIN (GLUCOPHAGE) 500 mg tablet Take 1 tablet (500 mg total) by mouth 2 (two) times a day. 8 Active metoprolol succinate (TOPROL-XL) 50 mg 24 hr tablet Take 1 tablet (50 mg total) by mouth 1 (one) time each day. Active nortriptyline (PAMELOR) 25 mg capsule Take 1 capsule (25 mg total) by mouth 1 (one) time each day. 9 Active rosuvastatin (CRESTOR) 20 mg tablet Take 1 tablet by mouth once daily 90 tablet 2 5 Active rosuvastatin (CRESTOR) 20 mg tablet Take 1 tablet (20 mg total) by mouth 1 (one) time each day. 06/14/20 25 Discontinued Active Problems Problem Noted Date Diagnosed Date Shortness of breath 04/25/2025 DCM (dilated cardiomyopathy) (CMS/HCC V24, CMS/H CC V28) 04/25/2025 Chronic combined systolic an d diastolic congestive heart failure (CMS/HCC V24, CMS/HCC V28) 04/25/2025 Congenitally corrected transposition of great ar teries 04/25/2025 History of pulmonary embolism 04/25/2025 Pulmonary hypertension (CMS/HCC V24, CMS/HCC V28 ) 04/25/2025 Encounters Date Type Department Care Team Description 04/25/2025 12:00 PM EDT Office Visit [facility] [place] [address] [place] [phone] Omid Stafford MD Shortness of breath (Primary Dx); DCM (dilated cardiomyopathy) (CMS/HCC V24, CMS/HCC V28); Chronic combined systolic and diastolic congestive heart failure (CMS/HCC V24, CMS/HCC V28); Congenitally corrected transposition of great arteries; History of pulmonary embolism; Pulmonary hypertension (CMS/HCC V24, CMS/HCC V28); SANFORD (dyspnea on exertion) from Last 3 Months Surgical History Surgery Date Site/Laterality Comments TIBIA [...] Sign Reading Time Taken Comments Blood Pressure 126/56 04/25/2025 11:45 AM EDT Pulse 54 04/25/2025 11:45 AM EDT Temperature - - Respiratory Rate - - Oxygen Saturation 97% 04/25/2025 11:45 AM EDT Inhaled Oxygen Concentration - - Weight 63 kg (139 lb) 04/25/2025 11:45 AM EDT Height 157.5 cm (5' 2 ) 04/25/2025 11:45 AM EDT Body Mass Index 25.42 04/25/2025 11:45 AM EDT Plan of Treatment Upcoming Encounters Date Type Department Care Team (Late st Contact Info) Description 07/22/2025 11:15 AM EDT Ancillary Procedure [facility] [address] [phone] 10/31/2025 11:30 AM EST [facility] [address] [phone] Omid Stafford MD [address] [place] [address] Health Maintenance Due Date Last Done Comments DTaP,Tdap,and Td Vaccines (1 - Tdap) 1964 Pneumococcal Vaccine: 50+ Years (1 of 2 - PCV) 1966 Zoster Vaccines (1 of 2) 1997 RSV Immunization Adult Patients (1 - 1-dose 75+ series) 2022 Cholesterol Screening (Lipid Panel) 10/25/2022 Falls Risk Assessment 10/25/2022 Hepatitis C Screening 10/25/2022 Osteoporosis Screening (Bone Density Screening) 10/25/2022 Social Influencers of Health Screening 10/25/2022 Hypertension/CHF/CAD Annual BMP Blood Test 10/27/2022 COVID-19 Vaccine ( - 2023-2 5 season) 2024 Medicare Annual Wellness Visit 07/28/2024 07/28/2023 Depression Screening 11/17/2024 Influenza Vaccine (#1) 2025 0, 07/22/2019 HIB Vaccines Aged Out No longer [...] on patient's age to complete this topic Procedures Procedure Name Priority Date/Time Associated Diagnosis Comments ECG 12-LEAD Routine 04/25/2025 12:13 PM EDT Shortness of breath DCM (dilated cardiomyopathy) (CMS/HCC V24, CMS/HCC V28) Chronic combined systolic and diastolic congestive heart failure (CMS/HCC V24, CMS/HCC V28) Congenitally corrected transposition of great arteries History of pulmonary embolism from Last 3 Months Results * ECG 12 lead (04/25/2025 12:13 PM EDT) Narrative Omid Stafford MD - 04/25/2025 12:13 PM EDT Sinus bradycardia at 53 bpm with first-degree AV block and nonspecific IVCD along with left atrial abnormality and low voltage and diffuse ST abnormality-no change overall us Omid Stafford MD ECG ORDERABLES Final Result from Last 3 Months Insurance MEDICARE [facility] Care Teams Wooden Box Maker Relationship Specialty Start Date End Date Megha Mooney MD [address] [place] [address] PCP - General Internal Medicine 01/24/16
--- OUTSIDE RECORDS SUMMARY | 2025-07-12 10:52 | XMS_ITS ---
Continuity of Care Document (CCD) Created on: July 12, 2025 Iliana Kmi External Reference #: [id number] : [id number] Sex: Female Author Organization [facility] Address [address] [facility] [address] [place], [place] Phone [phone] Care Team Providers Care Manager Golf Name Role Phone No Primary Provider Care Team Information Receiv er Unavailable ALLISON FALCON M.D. Care Team Information Rec eiver Unavailable No Primary Provider Primary Care Physician Unava ilable Social History Type Date Description Comments Sex Female Sex Unknown
--- OUTSIDE RECORDS SUMMARY | 2025-07-12 10:52 | XMS_ITS | Clinical Summary ---
Author Organization [facility] Address [address] [facility] [address] [place] [address] Phone Care Team Providers Care Business Solutions Director Name Role Phone Megha Mooney MD Primary Care Provider [phone] Allergies Active Allergy Reactions Criticality Noted Date [...] of 2 - PCV) 1966 Influenza Vaccine (#1) 2025 Hepatitis B Vaccine Aged Out No longe r eligible based on patient's age to complete this topic Insurance [address] [place] [address] [facility] Medicare [address] [place] [address] [facility] Medicare Care Teams Business Solutions Director Relationship Specialty Start Date End Date Megha Mooney MD [address] [place] [address], [address] [place] [address] PCP - General 11/27/20
--- OUTSIDE RECORDS SUMMARY | 2025-07-12 10:52 | XMS_ITS | Clinical Summary ---
Author Organization [facility] Address [address] [place] [address] Care Team Providers Care Art Objects Repairer Name Role Phone Megha Mooney MD Primary Care Provider [phone] Allergies Active Allergy Reactions Criticality Noted Date [...] 86 05/24/2024 2:13 PM EDT Temperature 36.3 C (97.3 F) 04/03/2022 1:25 PM EDT Respiratory Rate 22 01/03/2017 8:03 AM EST [...] 1-dose 75+ series) 2022 Influenza Vaccine (#1) 2025 Hepatitis B Vaccines Aged Out No long er eligible based on patient's age to complete this topic RSV Ped < 20 months Aged Out No longe r eligible based on patient's age to complete this topic Advance Directives For more information, please contact: [phone] Latest Code Status on File Code Status Date Activated Date Inactivated Comments DNR 12/30/2016 10:56 PM 01/03/2017 5:59 PM This code status was ascertained in the following way: discussion with patient. Code Status History Code Status Date Activated Date Inactivated Comments Full Code 12/30/2016 7:37 PM 12/30/2016 10:56 PM This code status was ascertained in the following way: discussion with patient. Care Teams Art Objects Repairer Relationship Specialty Start Date End Date Megha Mooney MD [address] [place] [id number] PCP - General Internal Medicine 01/24/16
== END 2025-07-12 11:05 | disposition home or self-care (01) ==
LOC: HO.HKAS 10:09
PROVIDERS: PCP Internal Medicine; Visit Provider Internal Medicine Nephrology
DX: N18.31 Chronic kidney disease, stage 3a (principal)
CPT/HCPCS: 99214

== ENCOUNTER → 2025-07-12 10:09 | Outpatient (BNVA) | payer MEDICARE, SELFPAY | PROVIDERS: PCP Internal Medicine; Visit Provider Internal Medicine Nephrology | DX: E11.22 Type 2 diabetes mellitus with diabetic chronic kidney disease (principal); N18.31 Chronic kidney disease, stage 3a | CPT/HCPCS: 99212 ==

== ENCOUNTER 2025-08-01 10:05 | Outpatient (AMB) | payer MEDICARE, SELFPAY ==
--- NOTE | 2025-08-01 10:27 | A.OFFVIS_ITS ---
Vital Signs 08/01/25 10:29 Height 5 ft 2 in Weight 143 lb 11.862 oz BMI 26.3 BP 130/58 L Blood Pressure Location Rt brachial Position Sitting Pulse 47 L Pulse Source Pulse Oximeter Pulse Oximetry (%) 95 Oxygen Delivery Method Room Air Intake Visit Reasons: T2DM Intake Note: New patient externally referred by PCP for T2DM management. Patient states she is fingersticking, unsure of the name of the glucometer. Last Diabetic Eye exam: Is being seen at [facility], within the year states she is unsure when Last Podiatry Visit: [place] snot see a Building Maintenance Repairer Random Glucose: 108 mg/dl Hgb A1C: 13.5% 05/30/2025 done at [facility] Filling Separator Required: No Accompanied by: Self / Same As Patient Allergies No Known Allergies Allergy (Verified 08/01/25 10:30) Medication List - Last Reconciled 08/01/25 by Fish Ortiz MD empagliflozin 25 mg PO DAILY 30 days furosemide 20 mg PO Q OTHER DAY insulin glargine (Lantus Solostar U-100 Insulin) 20 units subcut QAM metformin 500 mg PO DAILY metoprolol succinate ER 50 mg PO DAILY nortriptyline 25 mg PO BEDTIME rosuvastatin 20 mg PO DAILY spironolactone 12.5 mg PO DAILY HPI Comments Details: 80 YO F who is seen in consultation for T2DM at the request of PCP. Initially diagnosed with T2DM in 30 yrs . Saw endo [place] yrs ago . Was diet- controlled Was initially started on treatment with metformin . Current regimen Glargine 20 units . Jardiance 25 mg QD , metformin 500 mg QD Checks sugars every couple of days per day. Unfortunately, patient did not bring log book, glucometer or sensor to appointment Reports low sugars once a wk .no sx Treats lows with OJ . Checks sugar after to ensure it is rising. Waits 1 hr later to check Most recent A1C 13.5 on 05/21/25 , states A1c deteriorate after holding metformin. Family history of T2DM in mother . Has eyes checked yearly, last eye exam earler this yr has appt in 10/2025 , denies retinopathy. Denies neuropathy, not sees podiatry. Has nephropathy, Not on KAREN/ARB. UAC [] as measured on []. Has HLD, on statin. Last LDL 136 on 04/19/2025 as measured on []. Denies CAD. Not Had diabetes education recently . [facility] Medical History (Updated 08/01/25 @ 10:36 by Fish Ortiz MD) Uncontrolled type 2 diabetes mellitus with hyperglycemia CKD (chronic kidney disease) Surgical History (Updated 08/01/25 @ 10:31 by GARRICK Limon) History of hip replacement Family History Mother Heart attack Father Heart attack Social History Alcohol intake: never Patient Tobacco Use Status: Never used Tobacco Physical Exam Vital Signs: BMI result Body Mass Index 26.3 Absence of Cushingoid features. Absence of acromegalic features. Neck exam reveals nl size thyroid about 15 gms. No thyroid nodules palpable. No carotid bruits present. Lungs CTA. Heart S1 S2, Reg R/R. No M/R/ G. Skin exam reveals absence of vitiligo or acanthosis nigricans. Abdominal exam reveals Soft NT/ND with NA BS. No organomegaly present. Neck Other: . Extrem Other: Visual exam of foot performed. No ulcerations or open lesions. No onchomycosis, no callouses.Pulses 2 + distally Sensation intact to monofilament exam. Vibratory sensation sensed is decreased with 128 Hz tuning fork Assessment & Plan Assessment & Plan (1) Uncontrolled type 2 diabetes mellitus with hyperglycemia: Code(s): E11.65 - Type 2 diabetes mellitus with hyperglycemia Category: Medical Plan: 80-year-old white female with a history of type 2 diabetes being treated with Jardiance, metformin and basal insulin with poor glycemic control and known microvascular complications namely CKD stage 3 Plan is to initiated Carmel 3+ sensor and reader Can not make any changes to the regimen today because of lack of data. We will have patient see perioperative educator today and sheet sorter. Went over extensively with patient the the correlation of poor glycemic control to development and progression of complications. We will also check anti-ailyn 65 antibodies. Lastly, if blood sugars are still deteriorated on sensor, could consider performing a CAT scan of the abdomen to look at the pancreas to rule out neoplasm causing sudden rise in A1c. We will hold off on this until we get more information. Orders: Orders Glutamic acid decarboxylase Ab Today E11.65 - Type 2 diabetes mellitus with hyperglycemia Lipid Panel Today E11.65 - Type 2 diabetes mellitus with hyperglycemia Referrals Diabetes Education Referral E11.65 - Type 2 diabetes mellitus with hyperglycemia Nutrition/Dietitian Referral E11.65 - Type 2 diabetes mellitus with hyperglycemia Medications: New Baqsimi 3 mg/actuation (glucagon) 3 mg intranasal ONCE 2 ea 4RF NS Coding Level of Care Code New Pt Level 5 (87660) Diagnoses Uncontrolled type 2 diabetes mellitus with hyperglycemia E11.65
[2025-08-01 10:29] VITALS: BP 130/58; PULSE 47; O2SAT 95; BMI 26.3
[2025-08-01 10:42] LABS: Glucose, Whole Blood 108 mg/dL (60-115)
--- OUTSIDE RECORDS SUMMARY | 2025-08-01 12:42 | XMS_ITS | Clinical Summary ---
Author Organization [facility] Address [address] [place] [address] Care Team Providers Care Director Of Reimbursement Name Role Phone Megha Mooney MD Primary Care Provider [phone] Allergies Active Allergy Reactions Criticality Noted Date [...] Advance Directives For more information, please contact: [phone] Latest Code Status on File Code Status Date Activated Date Inactivated Comments DNR 12/30/2016 10:56 PM 01/03/2017 5:59 PM This code status was ascertained in the following way: discussion with patient. Code Status History Code Status Date Activated Date Inactivated Comments Full Code 12/30/2016 7:37 PM 12/30/2016 10:56 PM This code status was ascertained in the following way: discussion with patient. Care Teams Director Of Reimbursement Relationship Specialty Start Date End Date Megha Mooney MD [address] [place] [id number] PCP - General Internal Medicine 01/24/16
--- OUTSIDE RECORDS SUMMARY | 2025-08-01 12:42 | XMS_ITS | Clinical Summary ---
Author Organization [facility] [employer] Super[facility] [place] Address [address] [place] [address] Phone Care Team Providers Care Sash Sticker Name Role Phone Megha Mooney MD Primary Care Provider [phone] Allergies Active Allergy Reactions Criticality Noted Date Comments Alcohol Hives,Other 12/30/2016 Kiwi (Actinidia Chinensis) Hives 7 Medications aspirin 81 mg EC tablet Take 1 tablet (81 mg total) by mouth 1 (one) time each day. Active Jardiance 10 mg tablet Take 1 tablet (10 mg total) by mouth 1 (one) time each day. 04/15/2025 Active furosemide (LASIX) 20 mg tablet Take 1 tablet (20 mg total) by mouth every other day. Active Lantus U-100 Insulin 100 unit/mL injection Inject 20 Units under the skin at bedtime. Active metFORMIN (GLUCOPHAGE) 500 mg tablet Take 1 tablet (500 mg total) by mouth 2 (two) times a day. 02/19/2018 Active metoprolol succinate (TOPROL-XL) 50 mg 24 hr tablet Take 1 tablet (50 mg total) by mouth 1 (one) time each day. Active nortriptyline (PAMELOR) 25 mg capsule Take 1 capsule (25 mg total) by mouth 1 (one) time each day. 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 04/25/2025 History of pulmonary embolism 04/25/2025 Pulmonary hypertension ([facility] V24, [facility] V28 ) 04/25/2025 Encounters Date Type Department Care Team Description 07/22/2025 11:15 AM EDT Ancillary Procedure [facility] [place] [address] [place] [id number] Shortness of breath; DCM (dilated cardiomyopathy) ([facility] V24, [facility] V28); Chronic combined systolic and diastolic congestive heart failure ([facility] V24, [facility] V28); Congenitally corrected transposition of great arteries; History of pulmonary embolism from Last 3 Months Surgical History Surgery [...] 'TR'/MR Abnormal EKG DX:Abnormal EKG Pulmonary embolism ([facility] V24, [facility] V28) DX:Pulmonary embolism (HCC) Pulmonary embolism ([facility] V24, [facility] V28) DX:Pulmonary embolism (HCC) Diabetes mellitus ([facility] V 24, [facility] V28) DX:Diabetes mellitus (HCC) Acute renal insufficiency [...] Upcoming Encounters Date Type Department Care Team ([facility] st Contact Info) Description 01/27/2026 11:00 AM EDT Office Visit [facility] [place] [facility] [place] [address] [place] [address] [address] [place] [id number] Omid Stafford MD [address] [facility] [address] [place] [address] Health Maintenance Due Date Last Done Comments [...] 10/25/2022 Hypertension/CHF/CAD Annual BMP Blood Test 10/27/2022 Medicare Annual Wellness Visit 07/28/2024 07/28/2023 Depression Screening 11/17/2024 COVID-19 Vaccine (1 - 2023-2 5 season) 2025 Influenza Vaccine (#1) 2025 0, 07/22/2019 HIB [...] Procedure Name Priority Date/Time Associated Diagnosis Comments TRANSTHORACIC ECHOCARDIOGRAM (TTE) COMPLETE Routine 07/22/2025 12:09 PM EDT Shortness of breath DCM (dilated cardiomyopathy) (CMS/HCC V24, CMS/HCC V28) Chronic combined systolic and diastolic congestive heart failure (CMS/HCC V24, CMS/HCC V28) Congenitally corrected transposition of great arteries History of pulmonary embolism from Last 3 Months Results * TRANSTHORACIC ECHOCARDIOGRAM (TTE) COMPLETE (07/22/2025 12:09 PM EDT) Anatomical Region Laterality Modality Ultrasound Omid Stafford MD CV ECHO PROCEDURES Final Result from Last 3 Months Insurance MEDICARE [facility] Care Teams Sash Sticker Relationship Specialty Start Date End Date Megha Mooney MD [address] [place] [address] PCP - General Internal Medicine 01/24/16
--- OUTSIDE RECORDS SUMMARY | 2025-08-01 12:42 | XMS_ITS | Continuity of Care Document ---
Author Organization [facility] Address [address] [facility] [address] [place], [place] Phone [phone] Care Team Providers Care Ground Service Equipment Mechanic Name Role Phone No Primary Provider Care Team Information Receiv er Unavailable ALLISON FALCON M.D. Care Team Information Rec eiver Unavailable No Primary Provider Primary Care Physician Unava ilable Social History Type Date Description Comments Sex Female Sex Unknown
--- OUTSIDE RECORDS SUMMARY | 2025-08-01 12:42 | XMS_ITS | Clinical Summary ---
Author Organization [facility] Address [address] [facility] [address] [place] [address] Phone Care Team Providers Care Medical Device Sales Name Role Phone Megha Mooney MD Primary Care Provider [phone] Allergies Active Allergy Reactions Criticality Noted Date [...] this topic Insurance [id number] [place] [address] [facility] Medicare [id number] [place] [address] [facility] Medicare Care Teams Medical Device Sales Relationship Specialty Start Date End Date Megha Mooney MD [address] [place] [address], [address] [place] [address] PCP - General 11/27/20
== END 2025-08-01 11:41 | disposition home or self-care (01) ==
LOC: HO.ENCR 10:06
PROVIDERS: PCP Internal Medicine; Visit Provider Internal Medicine Endocrinology, Diabetes & Metabolism
DX: E11.65 Type 2 diabetes mellitus with hyperglycemia (principal)
CPT/HCPCS: 99204

== ENCOUNTER → 2025-08-01 10:05 | Outpatient (BNVA) | payer MEDICARE, SELFPAY | PROVIDERS: PCP Internal Medicine; Visit Provider Internal Medicine Endocrinology, Diabetes & Metabolism | DX: E11.65 Type 2 diabetes mellitus with hyperglycemia (principal); Z79.4 Long term (current) use of insulin | CPT/HCPCS: 82947; 99202; 99211 ==

== ENCOUNTER 2025-08-01 11:16 | Outpatient (AMB) | payer MEDICARE, SELFPAY ==
--- NOTE | 2025-08-01 11:32 | MHC.AMDMED ---
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 Required: No Accompanied by: Self / Same As Patient Allergies No Known Allergies Allergy (Verified 08/01/25 10:30) [facility] Medical History (Updated 08/01/25 @ 10:36 by Fish Ortiz MD) Uncontrolled type 2 diabetes mellitus with hyperglycemia CKD (chronic kidney disease) Surgical History (Updated 08/01/25 @ 10:31 by GARRICK Limon) History of hip replacement Family History Mother Heart attack Father Heart attack Social History Alcohol intake: never Patient Tobacco Use Status: Never used Tobacco Assessment & Plan Assessment & Plan (1) Uncontrolled type 2 diabetes mellitus with hyperglycemia: Code(s): E11.65 - Type 2 diabetes mellitus with hyperglycemia Plan: Patient at visit to set up an insert Carmel 3+ with [place] Instructed Pt on what CGM can and can't do CGM Can: Give Pt minute by minute reading of glucose levels Displays glucose trend arrows that represents the direction glucose levels are fluctuating Give insight on decisions about how to dose insulin CGM cannot: Improve glucose control on its own Completely eliminate the need for all finger sticks Make dosing decision for you CGM is the reading of glucose in the interstitial fluid not actual blood glucose, finger sticks are still necessary when Pt's symptom?s do not match sensor reading and if sensors prompts Pt to do a fingerstick Instructed patient sensors water proof you can shower, or swim do not submerge sensor in water for over 30 minutes Is sensor falls off cannot put back in you need to replace sensor, customer service number given to patient for sensor replacement Sensor placed on the back of right arm Patient left visit with sensor in warmup Reviewed how to interpret trend arrows Discussed lag time between finger stick and sensor data.? Instructed patient the importance of having blood glucometer for backup testing if needed Reviewed delay of CGM from fingersticks Reminded Pt that if symptoms do not match sensor still needs to check fingersticks. Portions of this note were created using voice recognition software, please excuse any words or phrases that may have been misinterpreted. Patient Instructions: Patient instruction: CGM provides information on blood glucose control throughout the day, including hyperglycemia and hypoglycemia. ? Continue to monitor blood glucose as instructed. Follow nutrition guidelines provided. Report any discomfort promptly to health care provider. ?Stay well-hydrated. You can bathe ,shower, swim and exercise while wearing the glucose sensor. Do not submerge glucose sensor in water for more than 30 minutes. Coding Level of Care Code Est Pt Level 1 (61386) Diagnoses Uncontrolled type 2 diabetes mellitus with hyperglycemia E11.65
== END 2025-08-01 11:37 | disposition home or self-care (01) ==
LOC: HO.ENCR 11:17
PROVIDERS: PCP Internal Medicine; Visit Provider Registered Nurse Diabetes Educator
DX: E11.65 Type 2 diabetes mellitus with hyperglycemia (principal)

== ENCOUNTER 2025-09-05 12:25 | Outpatient (AMB) | payer MEDICARE, SELFPAY ==
--- NOTE | 2025-09-05 12:55 | A.OFFVIS_ITS ---
Intake Intake Visit Reasons: T2DM Cytogenetic Technician Required: No Accompanied by: Daughter Allergies No Known Allergies Allergy (Verified 08/01/25 10:30) [facility] Medical History (Updated 08/01/25 @ 10:36 by Fish Ortiz MD) Uncontrolled type 2 diabetes mellitus with hyperglycemia CKD (chronic kidney disease) Surgical History (Updated 08/01/25 @ 10:31 by GARRICK Limon) History of hip replacement Family History Mother Heart attack Father Heart attack Social History Alcohol intake: never Patient Tobacco Use Status: Never used Tobacco Assessment & Plan Assessment & Plan (1) Uncontrolled type 2 diabetes mellitus with hyperglycemia: Code(s): E11.65 - Type 2 diabetes mellitus with hyperglycemia Plan: Diabetes self-management education and support participation record Assessment/scale: 1= needs instructed? 2= needs review? 3= comprehend keep point? 4= demonstrates understanding/ competent? NC= Not Covered Topics Learning Objective: Initial visit Initial or post srvc Initial or post srvc Initial or post srvc Initial or post srvc Initial or post srvc Post srvc Comments Pre Edu-assessment/plan Outcome or reassess O utcome or reassess Outcome or reassess Outcome or reassess Outcome or reassess Outcome or reassess Diabetes pathophysiology 1 Healthy eating 2 Being active 1 Taking medication 1 Monitoring glucose 1 Acute complication 1 Chronic complicated 1 Lifestyle and healthy coping 1 Diabetes distress in support 1 ?Diabetes pathophysiology: ?Defined diabetes med identify own type of diabetes; list 3 options for treating diabetes Healthy eating: ?Described effect of type, amount and ?timing of food on blood glucose; list 3 methods for planning meal Being active: ?State effect of exercise on blood glucose level Taking medication: ?State effect of diabetes medications on diabetes; name diabetes medications taking, action and side effects Monitoring glucose: ?Identify recommended blood glucose targets and personal target Acute complication: ?List symptoms and treatment of hyper and hypoglycemia, DKA, sick day guidelines and guidelines for severe weather or situations of crisis and diabetes supply manage Chronic complication: ?To find the relationship of blood glucose levels to long- term complications of diabetes in screening and preventative measures Lifestyle and healthy coping: ?Described lifestyle and healthy coping strategies to rule out diabetes self-management Diabetes to stress and support: ?Recognize Diabetes to stress and be able to identified support options Learning objectives: The patient was provided with verbal and written education on the following topics as outlined below. The patient met all learning objectives and was able to verbalize understanding and provide teach back of education topics discussed . The patient was provided with the opportunity to ask questions and all questions were answered. Patient Assessment Assess patient education level/literacy/barriers, A1c on 05/30/2025 13.5%. Patient reports she has had diabetes for greater than 20 years She is currently taking Lantus 20 units daily Metformin 500 mg daily Jardiance 25 mg daily, Jardiance has been prescribed by her data typist Patient questions/concerns, patient reports that she has been waking up overnight and in the solar energy systems designer with episodes of hypoglycemia. Reviewed the following: Hypoglycemia or blood glucose under 80 mg/dL use the rule of 15's: If you have your blood glucose meter test your blood glucose, if you do not have your meter still follow below instruction: Keep quick-sugar foods with you at all times.? Take 15 grams of fast acting carbohydrates. Examples are 4 ounces of fruit juice or regular soda pop, 8 ounces fat-free milk, 1 tablespoon of table sugar, honey or corn syrup, jam, one miniature box of raisins, 7-8 gumdrops or Life Savers candy, 4 glucose tablets, and glucose gel.? Retest blood glucose in 15 minutes, if blood glucose is still under 80 mg/dL repeat rule of 15's. If blood glucose is under 50, take 30 grams of fast acting carbohydrates If you are having hypoglycemia, or insulin reaction, more that a few times a week, call MD or inclusion special educator F/U BG check What is Diabetes? Pathophysiology How the body produces and uses insulin Identify type of DM Risk factors Signs of Diabetes Brief overview of Diabetes Management Monitoring blood sugar Following a meal plan Regular exercise Maintaining a healthy weight Taking medication as needed Members of the care team (PCP, RN, MA, RD, CDE, exterior work helper) Blood glucose monitoring When/how often to test Target blood sugar ranges Introduction to Nutrition Importance of healthy diet in managing DM Diet is personalized to individual preference Review patient?s regular diet/food preferences Who prepares meals/does food shopping/ Dining out?/ Barriers? How diet effects glucose Eating 3 balanced meals a day with small, healthy snacks between meals Review food groups Carbohydrates: What is a carbohydrate/Which food/food groups are considered carbohydrates Effect of carbohydrates on blood glucose Portion sizes Reading food labels Basic carb counting (if applicable per nursing assessment) Plate method Meal planning Recommendations: Follow plate method, consistent carbs and read nutritional labels. Smart Goal: Patient will identify foods in current meal plan that contain carbohydrates Educational Materials: The patient was provided with the following written educational materials: Planning Healthy Meals Handout Patient Response to instructions: Comprehension of Instructions: Fair Readiness to make changes: Contemplation How confident they feel about making changes: Positive Portions of this note were created using voice recognition software, please excuse any words or phrases that may have been misinterpreted. Patient Instructions: Reduce Lantus to 16 units, after 3 days if still having glucose under 80 mg/dL reduce to 14 units Include regular daily activity. ADA recommends 30 minutes of exercise 5 days a week. Weight loss talk to PCP or Cook Specialty Foreign Food before starting new plan. Test blood sugar as directed; Fasting and 2hpp largest meal. Watch trends in results. Utilize results and to assess how food, physical activity and medications affect blood sugar results. Bring glucometer or CGM to next visit. Be knowledgeable about diabetes medication, its action, side effects, efficacy, toxicity, prescribed dosage, appropriate timing and frequency of administration, effect of missed and delayed doses and instructions for storage, travel and safety. Problem solving techniques to monitor hypo/hyperglycemia episodes and treatments. Reduce risk reduction behaviors, smoking cessation, regular eye, foot and dental examinations. Coding Level of Care Code Est Pt Level 1 (85766) Diagnoses Uncontrolled type 2 diabetes mellitus with hyperglycemia E11.65
== END 2025-09-05 13:15 | disposition home or self-care (01) ==
LOC: HO.ENCR 12:26
PROVIDERS: PCP Internal Medicine; Visit Provider Registered Nurse Diabetes Educator
DX: E11.65 Type 2 diabetes mellitus with hyperglycemia (principal)

== ENCOUNTER → 2025-09-05 12:25 | Outpatient (BNVA) | payer MEDICARE, SELFPAY | PROVIDERS: PCP Internal Medicine; Visit Provider Registered Nurse Diabetes Educator | DX: E11.65 Type 2 diabetes mellitus with hyperglycemia (principal) | CPT/HCPCS: 99211 ==

== ENCOUNTER 2025-09-20 10:32 | Outpatient (AMB) | payer MEDICARE, SELFPAY ==
--- NOTE | 2025-09-20 11:14 | A.OFFVIS_ITS ---
VS Expanded 09/20/25 11:17 Height 5 ft 2 in Weight 145 lb 11.609 oz BMI 26.7 Intake Visit Reasons: Type 2 diabetes mellitus with hyperglycemia Allergies No Known Allergies Allergy (Verified 08/01/25 10:30) Nutrition Presentation Details: Pt presents for MNT for T2DM Patient reports working on diet modifications depending on the person cooking. Patient reports living with 7 adult, and all take turns in cooking Typical meal tea breakfast : 8-30 am juice , slice of toast butter lunch salad lettuce/tomatoes /cucumber beets boiled egg, grapes or strawberries or dried cranberries, rice vinaigrette Dinner chicken green beans potato and salad ,water Beverages: Water, tea, sometimes juice or soda Physical activity: Daily life activities Alcohol/smoking denies Denies GI symptoms LWM-Zhwikwp-Bp.Jeor Equation Height: 5 ft 2 in Weight: 146 lb Resting Metabolic Rate: 1101.07 Calculated Activity Level: Mild Activity Calories Needed to Maintain Weight: 1513.97 Diagnosis Nutrition problem #1: food nutri know defi As related to (etiology) #1: diagnosis As evidenced by (sign/symptom) #1: knowledge deficit of diet [facility] Medical History (Updated 08/01/25 @ 10:36 by Fish Ortiz MD) Uncontrolled type 2 diabetes mellitus with hyperglycemia CKD (chronic kidney disease) Surgical History (Updated 08/01/25 @ 10:31 by GARRICK Limon) History of hip replacement Family History Mother Heart attack Father Heart attack Social History Alcohol intake: never Patient Tobacco Use Status: Never used Tobacco Assessment & Plan Assessment & Plan (1) Uncontrolled type 2 diabetes mellitus with hyperglycemia: Code(s): E11.65 - Type 2 diabetes mellitus with hyperglycemia Category: Medical Plan: current wt: 66 kg ( 09/2025 ) est kcal needs as per MSJ: 1600 (meals with less than 45 g of carbs, 3 meals a day) est protein needs as per 1 g/kg BW: 70 est fluid needs as per 30 ml/kg BW: 2000 Recommended fiber > 12 g /day and gradually increase up to 25-28 g /day or as tolerated Nutrition topics discussed : Reviewed (R), Pt verbalized understanding (V) , not applicable (N/A) R : Healthy Plate Method Concept: R: Carbohydrates: food sources of carbohydrates, relationship of carbohydrates to blood glucose, fatty liver GI health. Recommended total amount of carbohydra chavo per meals and snack. Differences between simple carbohydrates and complex carbohydrates R: Lean protein foods including vegan , vegetarian sources of protein. Benefits of protein (including but not limited to healing, nutritional value , benefits in weight loss, glucose control R, V, N/A: Fats : Source of fats, benefits of fats. Difference between saturated and unsaturated fats. Saturated fats and its contribution to inflammation R, V, N/A: Fiber: food sources and role of fiber in the diet (including but not limited to its role as a prebiotic, benefits in constipation, role in IBS , role in glucose control and cholesterol level) R: Hydration: role of hydration and prevention of dehydration or over hydration. Foods and water content. R, V, N/A: Vitamins and Minerals in foods and supplements R, V, N/A: Interpreting food labels, including serving size, macronutrients, vitamins, minerals, allergens, ingredient list , % daily value Patient Instructions: Continue to follow healthy plate method Work on choosing no sugar or low sugar added foods (have a fruit in place of pastries, choose a yogurt in place of ice cream) Keep hydrated by having water with meals or milk or juices diluted with water Coding Level of Care Code Nutr Indiv Intake (50198) Diagnoses Uncontrolled type 2 diabetes mellitus with hyperglycemia E11.65 Time Spent (min) 30
[2025-09-20 11:17] VITALS: BMI 26.7
--- OUTSIDE RECORDS SUMMARY | 2025-09-20 12:24 | XMS_ITS | Continuity of Care Document ---
Author Organization [facility] Address [address] [facility] [address] [place], [place] Phone [phone] Care Team Providers Care Wind Up Operator Name Role Phone No Primary Provider Care Team Information Receiv er Unavailable ALLISON FALCON M.D. Care Team Information Rec eiver Unavailable No Primary Provider Primary Care Physician Unava ilable Social History Type Date Description Comments Sex Female Sex Unknown
--- OUTSIDE RECORDS SUMMARY | 2025-09-20 12:24 | XMS_ITS | Data Portability ---
Author Organization [place] - [facility], Allergy Address [address] [address] Care Team Providers Care Rn Tele Name Role Phone HAN VINCENT Primary Care Provider Assessment Encounter Date Assessment Date Assessment LastModified by Organization Details LastModified Time 10/25/2024 10/25/2024 Recommendatio ns: Follow up with referring provider. Not available 10/25/2024 11:58:37 Plan of Treatment Reminders Order Date Submit Date Provider Last Modified By Organization Details Last Modified Time Details Appointments Establish ed 10 2024 10:50A M GAMA POND MD Not available Not available Not available Lab None recorded. Referral None recorded. Procedures None recorded. Surgeries None recorded. Imaging None recorded. Medication Orders nortripty line 25 mg capsule 2023 024 [facility] [address] [place], [address], 10/25/2024 12:13:52 Patient TargetsNo targets recorded. Patient InstructionsNo instructions recorded. Reason for Referral None Reported. Results Created Date Observation Date Name Description Value Unit Range Abnormal Flag Note LastModifiedBy Organization Detail LastModifiedTime 10/25/20 24 audio gram No observ ation record ed. BARCODE Not Available 2023 15:23:06 Result Notes None recorded. Problems Name Problem SNOMED Code Status Onset Date Resolution Date Notes Provider Name and Address Organization Details Recorded Time Migraine variants 254797903 Active 2013 Migraine variant; Note: Date Diagnosed : 4 2:39 PM (346.20) Not Available [facility] 08/02/202 4 02:21:29 Asymmetri drew sensorine ural hearing loss 668510454 Active 2013 Sensorine ural hearing los asymmetri c; Note: Date Diagnosed : 4 2:39 PM (389.16) Not Available [facility] 4 02:22:03 Subjectiv e tinnitus 10545615 Active 2013 Subjectiv e tinnitus; Note: Date Diagnosed : 4 2:39 PM (388.31) Not Available [facility] 4 02:21:44 Migraine 22631752 Active 2015 Other migraine, not intractab le, without status migrainos us; Note: Date Diagnosed : 03/26/2016 9:45 AM (G43.809) [mapped from ICD9 code: 346.20] Not Available [facility] 4 02:21:43 Tinnitus of right ear 05517812267 08 Active 2015 Tinnitus, right ear; Note: Date Diagnosed : 03/26/2016 9:45 AM (H93.11) [mapped from ICD9 code: 388.31] Not Available [facility] 4 02:22:03 Vertigo of central origin NOS Active 2015 Vertigo of central origin, unspecifi ed ear; Note: Date Diagnosed : 03/26/2016 9:51 AM (H81.49) Not Available [facility] 4 02:22:06 Sensorine ural hearing loss 71310157 Active 2015 Sensorine ural hearing loss, unilatera l, left ear, with unrestric james hearing on the contralat eral side; Note: Date Diagnosed : 03/26/2016 9:51 AM (H90.42) Not Available [facility] 4 02:21:46 M ni re's disease 17697256 Active 2016 Meniere's disease, left ear; Note: Date Diagnosed : 05/27/2017 1:51 PM (H81.02) Not Available [facility] 4 02:22:09 Sensorine ural hearing loss of bilateral ears 124497356 Active 2016 Sensorine ural hearing loss, bilateral ; Note: Date Diagnosed : 05/27/2017 1:20 PM (H90.3) Not Available [facility] 4 02:22:01 Vertigo of central origin 06336763 Active 2021 Vertigo of central origin; Note: Date Diagnosed : 4 2:39 PM (386.2) ; Start Date : 4 Vertigo of central origin; Note: Date Diagnosed : 04/12/2022 12:42 PM (H81.4) Not Available [facility] 4 02:21:31 Sudden idiopathi c hearing loss 672761797 Active 2022 Sudden idiopathi c hearing loss, right ear; Note: Date Diagnosed : 07/09/2023 12:07 PM (H91.21) Not Available [facility] 4 02:21:49 Notes:Encounter for issue of repeat prescription Note: Date Diagnosed: 10/31/2023 1:55 AM (Z76.0) Note: Date Diagnosed: 10/31/2023 1:55 AM (Z76.0) Problem Notes None recorded. Procedures Surgical History Date Name Laterality Status Provider Name and Address Organization Details Recorded Time 10/25/2024 Comp Audio with Tymps - 42581 & 12645 completed CHARLENE DALTON, [address] [address], [place], [address], [facility] - [facility] 10/25/2024 11:59:01 Imaging Results None recorded. Procedure Notes None recorded. Medical Equipment None Reported. Allergies No known drug allergies Medications Name Sig Start Date Stop Date Status Note LastModified by Organization Details LastModified Time metformin 500 mg tablet TAKE 1 TABLET BY MOUTH TWICE DAILY active Not Available Not Available No t Available prednison e 10 mg tablet 10/30 completed Medicati on ID: [id number] Agustin rodriguez By Name: JOYCE Clark nd Name: predniso nga Send Method: E-Prescr ibed Sub s Allowed: subs OK Speci al Instruct ion: Take 6 tabs PO QD X 9 days, then 5 tabs PO QD day 10, 4 tabs day 11, 3 tabs day 12, 2 tabs day 13 and 1 tab day 14 Medic ationGen ericName : predniso ne Not Available Not Available Not Available metoprolo l succinate ER 50 mg tablet,ex tended release 24 hr TAKE 1 TABLET BY MOUTH ONCE DAILY active Not Available Not Available No t Available Lantus U-100 Insulin 100 unit/mL subcutane ous solution INJECT 20 UNITS SUBCUTAN EOUSLY ONCE DAILY AT BEDTIME active Not Available Not Available No t Available spironola ctone 25 mg tablet TAKE 1 TABLET BY MOUTH ONCE DAILY active Not Available Not Available No t Available nortripty line 25 mg capsule Take 1 capsule every day by oral route at bedtime. 2023 active Not Available Not Available Not Avai lable prednisol one acetate 1 % eye drops,rocky pension 10/25 completed Not Available Not Available Not Available nortripty line 10 mg capsule 08/25 completed Medicati on ID: [id number] D uration Value: 30 Prescri bed By Name: JOYCE Clark nd Name: nortript yline Se nd Method: E-Prescr ibed Sub s Allowed: subs OK Speci al Instruct ion: Take 1 cap by mouth once a day Medi cationGe nericNam e: nortript yline Not Available Not Available Not Available lisinopri l 20 mg-hydroc hlorothia zide 25 mg tablet 05/27 completed Medicati on ID: [id number] Du ration Value: 90 Reason: () Brand Name: lisinopr il-hydro chloroth iazide S end Method: E-Prescr ibed Sub s Allowed: subs OK Medic ationGen ericName : lisinopr il-hydro chloroth iazide Not Available Not Available Not Available furosemid e 20 mg tablet TAKE 1 TABLET BY MOUTH ONCE DAILY active Not Available Not Available No t Available Aspir-81 mg tablet,de layed release 2018 active Medicati on ID: [id number] B rand Name: Aspir-81 Send Method: E-Prescr ibed Sub s Allowed: subs OK Medic ationGen ericName : Aspir-81 Not Available Not Available Not Available lisinopri l 2.5 mg tablet 04/12 completed Medicati on ID: [id number] D uration Value: 90 Brand Name: lisinopr il Send Method: E-Prescr ibed Sub s Allowed: subs OK Medic ationGen ericName : lisinopr il Not Available Not Available Not Available rosuvasta tin 20 mg tablet TAKE 1 TABLET BY MOUTH ONCE DAILY active Not Available Not Available No t Available Crestor 40 mg tablet 05/27 completed Medicati on ID: [id number] Du ration Value: 30 Reason: () Brand Name: Crestor Send Method: E-Prescr ibed Sub s Allowed: subs OK Medic ationGen ericName : Crestor Not Available Not Available Not Available Eliquis 5 mg tablet 07/29 completed Medicati on ID: [id number] D uration Value: 23 Reason: () Brand Name: Eliquis Send Method: E-Prescr ibed Sub s Allowed: subs OK Speci al Instruct ion: TAKE 2 TABLETS BY MOUTH TWICE A DAY FOR 7 DAYS THEN TAKE 1 TABLET TWIC E A DAY Medi cationGe nericNam e: Eliquis Not Available Not Available Not Available Jardiance 10 mg tablet TAKE 1 TABLET BY MOUTH ONCE DAILY active Not Available Not Available No t Available Vitals None Recorded Social History None recorded. Functional Status None recorded. Mental Status None recorded. Family History Nothing Reported. Medical History Condition Response Migraines Y Asthma Y Gynecological HistoryNo gynecological history recorded. Obstetrics History GPAL:G 0 P 0 0 0 0 Past Encounters Encounter ID Performer Location Encounter Start Date Encounter Closed Date Diagnosis/Indication Diagnosis SNOMED-CT Code Diagnosis ICD10 Code Diagnosis IMO Codes Diagnosis Note [id number] GAMA POND MD [facility] [address] [address] 10/25/2024 10:40:19 10/25/2024 12:16:47 Sensorineural hearing loss of bilateral ears 542559142 H90.3 Audiologic al evaluation results:Ri ght ear:Normal sloping to moderately severe sensorineu ral hearing loss with fair word recognitio n.Left ear:Modera te sloping to severe sensorineu ral hearing loss with poor word recognitio n. Tympanomet ry:Right Ear:Type ALeft Ear:Type Aaudiometr ic testing reviewed with patient. Hearing in the right ear is slightly better than it was at her last visit indicative of the underlying M ni re's phenomenon . I have given her a copy of her audiogram to bring back to her audiologis daniel Keith to ensure that her hearing aids are adjusted to match her current level of hearing loss. We did discuss the possibilit y that should her hearing deteriorat e in the future she would likely be a good candidate for cochlear implant technology . Migraine variants 109041 005 G43.809 Vertigo of central origin 29209007 H81.4 Overall doing well with regards to vestibular migraine symptoms. Refill for nortriptyl ine provided. [id number] CHARLENE DALTON, [place] [address] [facility], [place] [address] [place] [address] 10/25/2024 11:58:30 10/26/2024 06:59:40 Sensorineural hearing loss of bilateral ears 143409675 H90.3 Audiologic al evaluation results: Right ear: Normal sloping to moderately severe sensorineu ral hearing loss with fair word recognitio n. Left ear: Moderate sloping to severe sensorineu ral hearing loss with poor word recognitio n. Tympanomet ry: Right Ear:Type A Left Ear:Type A Health Concerns Section Related Observation LastModified by Organization Detai ls LastModified Time None Recorded Concern Status LastModified by Organization Details LastModified Time None Recorded Advance Directives Directive None Recorded Payers Insurance Date Sequence Insurance Name Policy Number Policy Mueller Covered Member ID Mueller Member ID Guarantor Name 10/25/2024 2 [employer] (MEDICARE SUPPLEMENT) Iliana Kim [id number] Iliana Kim 10/25/2024 1 [place]: [employer] Iliana Kim [id number] Iliana Kim Notes Date Note Type Note Provider Name and Address Organization Details Recorded Time 10/25/2024 text/html 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 Currently treated with nortriptyline, 25 mg at bedtime. She reports that the only formulation of nortriptyline that works for her comes from [employer]. Overall doing well with regards to her balance. She will sometimes get flareup of dizziness if her grandson accidentally scares her, but otherwise she is doing okayCurrently using binaural amplification managed by Rosalie Keith in [place] GAMA POND MD [address] [address], [place], [address], [facility] 10/25/2024 12:16:34 10/25/2024 text/html Audiological Evaluation HPIReported by PatientHearing LossFor hearing loss perceived, patient reportshearing loss in both ears (left ear worse).DizzinessFor balance symptoms reported, patient reportsdizziness.Use of amplification or other hearing devicesFor use of amplification or other hearing devices, patient reportshearing aid use in both ears. Stanley ARGUETA [address] [facility] [address], [place], [address], [facility] 10/25/2024 12:02:27 OBGyn Episode No OBEpisode recorded.
--- OUTSIDE RECORDS SUMMARY | 2025-09-20 12:24 | XMS_ITS | Clinical Summary ---
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 04/25/2025 History of pulmonary embolism 04/25/2025 Pulmonary hypertension ([facility] V24, [facility] V28 ) 04/25/2025 Encounters Date Type Department Care Team Description 07/22/2025 11:15 AM EDT Ancillary Procedure [facility] [place] [address] [place] [phone] Shortness of breath; DCM (dilated cardiomyopathy) ([facility] V24, [facility] V28); Chronic combined systolic and diastolic congestive heart failure ([facility] V24, [facility] V28); Congenitally corrected transposition of great arteries; [...] 'TR'/MR Abnormal EKG DX:Abnormal EKG Pulmonary embolism ([facility] V24, [facility] V28) DX:Pulmonary embolism (HCC) Pulmonary embolism ([facility] V24, [facility] V28) DX:Pulmonary embolism (HCC) Diabetes mellitus ([facility] V 24, [facility] V28) DX:Diabetes mellitus (HCC) Acute renal insufficiency [...] Upcoming Encounters Date Type Department Care Team ([facility] st Contact Info) Description 01/27/2026 11:00 AM EDT Office Visit [facility] [place] [facility] [place] [address] [place] [address] [address] [place] [phone] Omid Stafford MD [address] [facility] [address] [place] [address] Health Maintenance Due Date Last Done Comments [...] Result from Last 3 Months Insurance MEDICARE [facility] Care Teams Form Grader Relationship Specialty Start Date End Date Megha Mooney MD [address] [place] [address] PCP - General Internal Medicine 01/24/16
--- OUTSIDE RECORDS SUMMARY | 2025-09-20 12:25 | XMS_ITS | Clinical Summary ---
Author Organization [facility] Address [address] [place] [address] Care Team Providers Care Rn Unit Manager Name Role Phone Megha Mooney MD Primary Care Provider [phone] Allergies Active Allergy Reactions Criticality Noted Date [...] C Screening 1945 COVID-19 Vaccine (#1) 1947 Depression Screening 1959 Preventative Health Evaluation 1965 DTap / Tdap / Td (1 - Tdap) 1966 Shingrix-Zoster Vaccine (1 of 2) 1997 Fall Risk Assessment 2012 Osteoporosis Screening (DEXA Scan) 2012 Pneumococcal Vaccine (1 of 1 - PCV) 2012 RSV Adult > 60+ Yrs or Pregn ant (1 - 1-dose 75+ series) 2022 Influenza Vaccine (#1) 2025 Hepatitis B Vaccines Aged Out No long er eligible based on patient's age to complete this topic RSV Ped < 20 months Aged Out No longe r eligible based on patient's age to complete this topic Advance Directives For more information, please contact: [phone] Latest Code Status on File Code Status Date Activated Date Inactivated Comments DNR 12/30/2016 10:56 PM 01/03/2017 5:59 PM This code status was ascertained in the following way: discussion with patient. Code Status History Code Status Date Activated Date Inactivated Comments Full Code 12/30/2016 7:37 PM 12/30/2016 10:56 PM This code status was ascertained in the following way: discussion with patient. Care Teams Rn Unit Manager Relationship Specialty Start Date End Date Megha Mooney MD [address] [place] [address] PCP - General Internal Medicine 01/24/16
[2025-09-26 13:23] VITALS: BMI 26.7
== END 2025-09-20 12:10 | disposition home or self-care (01) ==
LOC: HO.ENCR 10:32
PROVIDERS: PCP Internal Medicine; Visit Provider Dietitian, Registered
DX: E11.65 Type 2 diabetes mellitus with hyperglycemia (principal)

== ENCOUNTER → 2025-09-20 10:32 | Outpatient (BNVA) | payer MEDICARE, SELFPAY | PROVIDERS: PCP Internal Medicine; Visit Provider Dietitian, Registered | DX: E11.65 Type 2 diabetes mellitus with hyperglycemia (principal) | CPT/HCPCS: 97802 ==

== ENCOUNTER 2025-10-03 08:36 | Outpatient (AMB) | payer MEDICARE, SELFPAY ==
--- NOTE | 2025-10-03 08:38 | MHC.OFFVIS ---
Vital Signs 10/03/25 08:43 Height 5 ft 2 in Weight 143 lb 8.335 oz BMI 26.2 BP 132/58 L Blood Pressure Location Lt brachial Position Sitting Pulse 46 L Pulse Source Pulse Oximeter Pulse Oximetry (%) 98 Oxygen Delivery Method Room Air Intake Visit Reasons: f/u diabetes Intake Note: Patient present today for T2DM. Last Diabetic Eye exam: Within the year, [facility] Last Podiatry Visit: Does not see a Wood Tile Installation Helper Random Glucose: 109 mg/dl Hgb A1C: 7.4% 10/03/2025 Supervisor Hanging And Trimming Required: No Accompanied by: Self / Same As Patient Allergies No Known Allergies Allergy (Verified 10/03/25 08:43) Medication List - Last Reconciled 10/03/25 by Fish Oritz MD Baqsimi 3 mg/actuation (glucagon) 3 mg intranasal ONCE NS blood sugar diagnostic (Mobile Active DefenseTouch Verio test strips) As directed test 1 times a day empagliflozin 25 mg PO DAILY 30 days furosemide 20 mg PO Q OTHER DAY insulin glargine (Lantus Solostar U-100 Insulin) 20 units subcut QAM metformin 500 mg PO DAILY metoprolol succinate ER 50 mg PO DAILY nortriptyline 25 mg PO BEDTIME rosuvastatin 20 mg PO DAILY spironolactone 12.5 mg PO DAILY HPI Comments Details: 80 YO F who is seen in consultation for T2DM at the request of PCP. Initially diagnosed with T2DM in 30 yrs . Saw rahat in [place] yrs ago . Was diet-controlled Was initially started on treatment with metformin . Current regimen Glargine 14 units . Jardiance 25 mg QD , metformin 500 mg QD Carmel download shows she is using the sensor 94% of the time. Average glucose is 143 with G mi of 6.7% and variability 31.1%. 76% range with 19% hyperglycemia in 2% very hyperglycemic and 3% hypoglycemia. Hypoglycemia as occurring predominantly overnight. No sx Reports low sugars once a wk .no sx Treats lows with OJ . Checks sugar after to ensure it is rising. Waits 1 hr later to check Family history of T2DM in mother . Has eyes checked yearly, last eye exam earler this yr has appt in 10/2025 , denies retinopathy. Denies neuropathy, not sees podiatry. Has nephropathy, Not on KAREN/ARB. UAC [] as measured on []. Has HLD, on statin. Last LDL 136 on 04/19/2025 as measured on []. Denies CAD. Not Had diabetes education recently . [facility] Medical History (Updated 08/01/25 @ 10:36 by Fish Ortiz MD) Uncontrolled type 2 diabetes mellitus with hyperglycemia CKD (chronic kidney disease) Surgical History History of hip replacement Family History Mother Heart attack Father Heart attack Social History Alcohol intake: never Patient Tobacco Use Status: Never used Tobacco Physical Exam Vital Signs: Last Vital Signs Pulse 46 L 10/03/25 08:43 BP 132/58 L 10/03/25 08:43 Pulse Ox 98 10/03/25 08:43 Oxygen Delivery Method Room Air 10/03/25 08:43 BMI result Body Mass Index 26.2 Absence of Cushingoid features. Absence of acromegalic features. Neck exam reveals nl size thyroid about 15 gms. No thyroid nodules palpable. No carotid bruits present. Lungs CTA. Heart S1 S2, Reg R/R. No M/R/ G. Skin exam reveals absence of vitiligo or acanthosis nigricans. Abdominal exam reveals Soft NT/ND with NA BS. No organomegaly present. Neck Other: . Extrem Other: Visual exam of foot performed. No ulcerations or open lesions. No onchomycosis, no callouses.Pulses 2 + distally Sensation intact to monofilament exam. Vibratory sensation sensed is decreased with 128 Hz tuning fork Results AMB Hemoglobin A1c AMB Hemoglobin A1c 7.4 % Last Edit by GARRICK Limon on 10/03/25 09:00 Results Reviewed Results Reviewed: Laboratory Last Values Glucose (Clinic) 109 mg/dL (60-115) 10/03/25 08:49 Assessment & Plan Assessment & Plan (1) Uncontrolled type 2 diabetes mellitus with hyperglycemia: Code(s): E11.65 - Type 2 diabetes mellitus with hyperglycemia Category: Medical Plan: 80-year-old white female with a history of type 2 diabetes being treated with Jardiance, metformin and basal insulin with improved excellent glycemic control and known microvascular complications namely CKD stage 3. She is having overnight hypoglycemia . Plan is to decrease the Lantus to 12 units. . We will also check anti-ailyn 65 antibodies. We will also have patient check lipid profile. She should also follow up with Nephrology. She will follow up with the primary care diabetes team in 4-5 weeks Orders: Orders AMB Hemoglobin A1c Today E11.65 - Type 2 diabetes mellitus with hyperglycemia Coding Level of Care Code Est Pt Level 4 (89226) Complex EM visit Add On G2211 Diagnoses Uncontrolled type 2 diabetes mellitus with hyperglycemia E11.65
[2025-10-03 08:43] VITALS: BP 132/58; PULSE 46; O2SAT 98; BMI 26.2
[2025-10-03 08:54] LABS: Glucose, Whole Blood 109 mg/dL (60-115)
--- OUTSIDE RECORDS SUMMARY | 2025-10-03 11:41 | XMS_ITS | Clinical Summary ---
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 04/25/2025 History of pulmonary embolism 04/25/2025 Pulmonary hypertension ([facility] V24, [facility] V28 ) 04/25/2025 Encounters Date Type Department Care Team Description 07/22/2025 11:15 AM EDT Ancillary Procedure [facility] [place] [address] [place] [phone] Shortness of breath; DCM (dilated cardiomyopathy) ([facility] V24, [facility] V28); Chronic combined systolic and diastolic congestive heart failure ([facility] V24, [facility] V28); Congenitally corrected transposition of great arteries; [...] 'TR'/MR Abnormal EKG DX:Abnormal EKG Pulmonary embolism ([facility] V24, [facility] V28) DX:Pulmonary embolism (HCC) Pulmonary embolism ([facility] V24, [facility] V28) DX:Pulmonary embolism (HCC) Diabetes mellitus ([facility] V 24, [facility] V28) DX:Diabetes mellitus (HCC) Acute renal insufficiency [...] Upcoming Encounters Date Type Department Care Team ([facility] st Contact Info) Description 01/27/2026 11:00 AM EDT Office Visit [facility] [place] [facility] [place] [address] [place] [address] [address] [place] [phone] Omid Stafford MD [address] [facility] [address] [place] [address] Health Maintenance Due Date Last Done Comments [...] Depression Screening 11/17/2024 COVID-19 Vaccine (1 - 2024-2 6 season) 2025 Influenza Vaccine (#1) 2025 0, [...] Result from Last 3 Months Insurance MEDICARE [facility] Care Teams Bookkeepers Supervisor Relationship Specialty Start Date End Date Megha Mooney MD [address] [place] [address] PCP - General Internal Medicine 01/24/16
--- OUTSIDE RECORDS SUMMARY | 2025-10-03 11:42 | XMS_ITS | Clinical Summary ---
Author Organization [facility] Address [address] [place] [address] Care Team Providers Care Fishing Tool Operator Name Role Phone Megha Mooney MD Primary Care Provider [phone] Allergies Active Allergy Reactions Criticality Noted Date [...] Advance Directives For more information, please contact: [phone] Latest Code Status on File Code Status Date Activated Date Inactivated Comments DNR 12/30/2016 10:56 PM 01/03/2017 5:59 PM This code status was ascertained in the following way: discussion with patient. Code Status History Code Status Date Activated Date Inactivated Comments Full Code 12/30/2016 7:37 PM 12/30/2016 10:56 PM This code status was ascertained in the following way: discussion with patient. Care Teams Fishing Tool Operator Relationship Specialty Start Date End Date Megha Mooney MD [address] [place] [address] PCP - General Internal Medicine 01/24/16
--- OUTSIDE RECORDS SUMMARY | 2025-10-03 11:42 | XMS_ITS | Clinical Summary ---
Author Organization [facility] Address [address] [facility] [address] [place] [address] Phone Care Team Providers Care Lumber Planer Name Role Phone Megha Mooney MD Primary Care Provider [phone] Allergies Active Allergy Reactions Criticality Noted Date [...] this topic Insurance [id number] [place] [id number] [facility] Medicare [id number] [place] [id number] [facility] Medicare Care Teams Lumber Planer Relationship Specialty Start Date End Date Megha Mooney MD [address] [place] [address], [address] [place] [address] PCP - General 11/27/20
== END 2025-10-03 09:08 | disposition home or self-care (01) ==
LOC: HO.ENCR 08:36
PROVIDERS: PCP Internal Medicine; Visit Provider Internal Medicine Endocrinology, Diabetes & Metabolism
DX: E11.65 Type 2 diabetes mellitus with hyperglycemia (principal)
CPT/HCPCS: 99214; G2211

== ENCOUNTER → 2025-10-03 08:36 | Outpatient (BNVA) | payer MEDICARE, SELFPAY | PROVIDERS: PCP Internal Medicine; Visit Provider Internal Medicine Endocrinology, Diabetes & Metabolism | DX: E11.22 Type 2 diabetes mellitus with diabetic chronic kidney disease (principal); E11.65 Type 2 diabetes mellitus with hyperglycemia; N18.30 Chronic kidney disease, stage 3 unspecified; Z79.4 Long term (current) use of insulin | CPT/HCPCS: 82947; 83036; 99212 ==

== ENCOUNTER 2025-11-15 09:51 | Outpatient (AMB) | payer MEDICARE, SELFPAY ==
[2025-11-15 10:02] VITALS: BP 134/66; PULSE 45; O2SAT 95; BMI 26.5
--- NOTE | 2025-11-15 10:02 | HO.NEPHOV ---
Vital Signs 11/15/25 10:02 Height 5 ft 2 in Weight 145 lb BMI 26.5 BP 134/66 Blood Pressure Location Lt brachial Position Sitting Pulse 45 L Pulse Source Pulse Oximeter Pulse Oximetry (%) 95 Oxygen Delivery Method Room Air Intake Visit Reasons: 4mnth w lab-LVM Industrial Education Instructor Required: No Accompanied by: Self / Same As Patient Allergies No Known Allergies Allergy (Verified 11/15/25 10:04) HPI Comments Details: Iliana was seen in follow-up for chronic kidney disease. 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 She has history of diabetes mellitus. Her blood sugar is fairly well controlled. She is on lipid-lowering agents. She is closely followed by her material expediter and PCP. She denies any chest pain, nausea vomiting or diarrhea, pedal edema or urinary symptoms. She has H/O hospitalization for CHF. She is on metoprolol & Spironolactone .She denies any orthostasis.She weighs herself daily. She has had high A1c and was started on Metformin 500 mg daily. She is on Jardiance 25 mg as well . Her HbA1c had improved [facility] Medical History (Updated 08/01/25 @ 10:36 by Fish Ortiz MD) Uncontrolled type 2 diabetes mellitus with hyperglycemia CKD (chronic kidney disease) Surgical History History of hip replacement Family History Mother Heart attack Father Heart attack Social History Alcohol intake: never Patient Tobacco Use Status: Never used Tobacco Review of Systems Const All systems reviewed & are unremarkable except as noted in HPI and below Physical Exam Vital Signs: Last Vital Signs Pulse 45 L 11/15/25 10:02 BP 134/66 11/15/25 10:02 Pulse Ox 95 11/15/25 10:02 Oxygen Delivery Method Room Air 11/15/25 10:02 BMI result Body Mass Index 26.5 Const General: comfortable and no acute distress Orientation/consciousness: patient oriented x3 HEENT Head: Yes normocephalic Mouth: Normal oral and palatal mucosa present Eyes EOM: EOMs intact bilaterally Neck Neck: Yes supple Resp Auscultation: clear to auscultation bilaterally Cardio Jugular venous distension: no JVD Rate: regular rate GI Palpation (GI): Soft to palpation Auscultation: normal bowel sounds General: Yes no CVA tenderness Back/Spine/Pelvis Back: no CVA tenderness Skin General skin exam: no rashes or lesions noted Neuro General: patient oriented x3 and moves all extremities Extrem General: Yes no pedal edema Results Reviewed Nephrology Results: Sodium, (135-145) 140 mmol/L Today Potassium, (3.3-5.1) 3.8 mmol/L Today Chloride, (96-108) 108 mmol/L Today Carbon Dioxide, (22-29) 23 mmol/L Today BUN, (9-16) 20 mg/dL H Today Creatinine, (0.5-1.4) 1.10 mg/dL Today Urine Creatinine 119.11 mg/dL Today Protein/Creatinin Ratio, (<0.2) 0.32 H Today Assessment & Plan Assessment & Plan (1) CKD (chronic kidney disease) stage 3, GFR 30-59 ml/min: Code(s): N18.30 - Chronic kidney disease, stage 3 unspecified Category: Medical Qualifiers: Chronic kidney disease stage 3 subtype: stage 3a (GFR 45-59) Qualified Code(s): N18.31 - Chronic kidney disease, stage 3a Plan Iliana has mild CKD. She is diabetic. Her blood sugars are better controlled now. Her blood pressure is at goal. Volume status optimal. She does not take any unle-moh-mhviniz medications. She is on metoprolol, spironolactone, lasix 20 mg barrett other day .She can continue Jardiance 25 mg daily. She can hold metformin when her A1c is better. F/U labs ordered. All questions answered Orders: Orders Blood Urea Nitrogen 4 Months N18.31 - Chronic kidney disease, stage 3a Creatinine 4 Months N18.31 - Chronic kidney disease, stage 3a Hemoglobin A1c 4 Months N18.31 - Chronic kidney disease, stage 3a Electrolytes 4 Months N18.31 - Chronic kidney disease, stage 3a Medications: Refilled empagliflozin 25 mg PO DAILY 30 tabs 11RF 30 days Coding Level of Care Code Est Pt Level 4 (05739) Diagnoses Stage 3a chronic kidney disease N18.31 Chronic kidney disease stage 3 subtype: stage 3a (GFR 45-59)
--- OUTSIDE RECORDS SUMMARY | 2025-11-15 12:48 | XMS_ITS | Data Portability ---
Author Organization [place] [facility], Allergy Address [address] [address] Care Team Providers Care Applier Name Role Phone HAN VINCENT Primary Care Provider [phone] Assessment Encounter Date Assessment Date Assessment LastModified by Organization Details LastModified Time 10/25/2024 10/25/2024 Recommendatio ns: Follow up with referring provider. [email or web address] Not available 10/25/2024 11:58:37 Plan of Treatment Reminders Order Date Submit Date Provider Last Modified By Organization Details Last Modified Time Details Appointments Dizzy Follow Up 10 2025 10:40A M GAMA POND MD Not available Not available Not available Lab None recorded. Referral None recorded. Procedures None recorded. Surgeries None recorded. Imaging None recorded. Medication Orders nortripty line 25 mg capsule 2024 025 [facility], [address] [place] [address], [address], 10/24/2025 11:43:07 nortripty line 25 mg capsule 2023 024 [facility], [address] [place], [address], 10/25/2024 12:13:52 Patient TargetsNo targets recorded. Patient InstructionsNo instructions recorded. Reason for Referral None Reported. Results Created Date Observation Date Name Description Value Unit Range Abnormal Flag Note LastModifiedBy Organization Detail LastModifiedTime 10/25/20 24 audio gram No observ ation record ed. BARCODE Not Available 2023 15:23:06 12/09/05/13/2025 audio gram No observ ation record ed. [email or web address] Not Available 07/2025 13:16:05 Result Notes None recorded. Problems Name Problem SNOMED Code Status Onset Date Resolution Date Notes Provider Name and Address Organization Details Recorded Time Migraine variants 796493215 Active 2013 Migraine variant; Note: Date Diagnosed : 4 2:39 PM (346.20) Not Available [facility] 4 02:21:29 Asymmetri drew sensorine ural hearing loss 034918926 Active 2013 Sensorine ural hearing los asymmetri c; Note: Date Diagnosed : 4 2:39 PM (389.16) Not Available [facility] 4 02:22:03 Subjectiv e tinnitus 90456050 Active 2013 Subjectiv e tinnitus; Note: Date Diagnosed : 4 2:39 PM (388.31) Not Available [facility] 4 02:21:44 Migraine 74363265 Active 2015 Other migraine, not intractab le, without status migrainos us; Note: Date Diagnosed : 03/26/2016 9:45 AM (G43.809) [mapped from ICD9 code: 346.20] Not Available [facility] 4 02:21:43 Tinnitus of right ear 43712221681 08 Active 2015 Tinnitus, right ear; Note: Date Diagnosed : 03/26/2016 9:45 AM (H93.11) [mapped from ICD9 code: 388.31] Not Available [facility] 4 02:22:03 Vertigo of central origin NOS Active 2015 Vertigo of central origin, unspecifi ed ear; Note: Date Diagnosed : 03/26/2016 9:51 AM (H81.49) Not Available [facility] 4 02:22:06 Sensorine ural hearing loss 05082233 Active 2015 Sensorine ural hearing loss, unilatera l, left ear, with unrestric james hearing on the contralat eral side; Note: Date Diagnosed : 03/26/2016 9:51 AM (H90.42) Not Available [facility] 4 02:21:46 M ni re's disease 19176434 Active 2016 Meniere's disease, left ear; Note: Date Diagnosed : 05/27/2017 1:51 PM (H81.02) Not Available [facility] 4 02:22:09 Sensorine ural hearing loss of bilateral ears 433558888 Active 2016 Sensorine ural hearing loss, bilateral ; Note: Date Diagnosed : 05/27/2017 1:20 PM (H90.3) Not Available [facility] 4 02:22:01 Vertigo of central origin 05786956 Active 2021 Vertigo of central origin; Note: Date Diagnosed : 4 2:39 PM (386.2) ; Start Date : 4 Vertigo of central origin; Note: Date Diagnosed : 04/12/2022 12:42 PM (H81.4) Not Available [facility] 4 02:21:31 Sudden idiopathi c hearing loss 176379215 Active 2022 Sudden idiopathi c hearing loss, right ear; Note: Date Diagnosed : 07/09/2023 12:07 PM (H91.21) Not Available [facility] 4 02:21:49 Notes:Encounter for issue of repeat prescription Note: Date Diagnosed: 10/31/2023 1:55 AM (Z76.0) Note: Date Diagnosed: 10/31/2023 1:55 AM (Z76.0) Problem Notes None recorded. Procedures Surgical History Date Name Laterality Status Provider Name and Address Organization Details Recorded Time 10/25/2024 Comp Audio with Tymps - 08391 & 51101 completed CHARLENE DALTON, [facility] [address] [facility] [address], [place], [address], [facility] - [facility] 10/25/2024 11:59:01 Imaging Results None recorded. Procedure Notes None recorded. Medical Equipment None Reported. Allergies Allergen ID Allergen Name Allergen Category Reaction Reaction Severity Criticality Documentation Date Start Date Code Code System Note Provider Name and Address Organization Details Recorded Time 522345 kiwi fruit allergeni c extract food,medi cation hives Not available Not available 10/23/20252016 04573 26 RxNorm Not Available boo - External Data Service - prod 21:16:20 511632 ethanol food,medi cation hives other Not available Not available Not available 10/23/20252016 448 RxNorm Not Available superior - External Data Service - prod 21:16:24 Medications Name Sig Start Date Stop Date Status Note LastModified by Organization Details LastModified Time metformin 500 mg tablet TAKE 1 TABLET BY MOUTH TWICE DAILY active Not Available Not Available No t Available prednison e 10 mg tablet 10/30 completed Medicati on ID: [id number] P rescribe d By Name: JOYCE Clark nd Name: predniso ne Send Method: E-Prescr ibed Sub s Allowed: [...] Insulin 100 unit/mL subcutane ous solution INJECT 14 UNITS SUBCUTAN EOUSLY ONCE DAILY AT BEDTIME active Not Available Not Available No t Available spironola ctone 25 mg tablet TAKE 1 TABLET BY MOUTH ONCE DAILY active Not Available Not Available No t Available nortripty line 25 mg capsule Take 1 capsule every day by oral route at bedtime. 2024 active Not Available Not Available Not Avai lable prednisol one acetate 1 % eye drops,rocky pension 10/25 completed Not Available Not Available Not Available nortripty line 10 mg capsule 08/25 completed Medicati on ID: [id number] D uration Value: 30 Prescri bed By Name: JOYCE Clark nd Name: norvance mcclelland Se nd Method: E-Prescr ibed Sub s Allowed: subs OK Speci al Instruct ion: Take 1 cap by mouth once a day Medi cationGe nericNam e: nortript yline Not Available Not Available Not Available lisinopri l 20 mg-hydroc hlorothia zide 25 mg tablet 05/27 completed Medicati on ID: [id number] Du ration Value: 90 Reason: () Brand Name: lisinopr il-hydro chloroth iazide S end Method: E-Prescr ibed Sub s Allowed: subs OK Medic ationGen ericName : lisinopr il-hydro chloroth iazide Not Available Not Available Not Available furosemid e 20 mg tablet TAKE 1 TABLET BY MOUTH EVERY OTHER DAY active Not Available Not Available No t Available Aspir-81 mg tablet,de layed release 2018 active Medicati on ID: [id number] B rand Name: Aspir-81 Send Method: E-Prescr ibed Sub s Allowed: subs OK Medic ationGen ericName : Aspir-81 Not Available Not Available Not Available lisinopri l 2.5 mg tablet 04/12 completed Medicati on ID: [id number] D uration Value: 90 Brand Name: lisinopr il Send Method: E-Prescr ibed Sub s Allowed: subs OK Medic ationGen ericName : lisinopr il Not Available Not Available Not Available rosuvasta tin 20 mg tablet TAKE 1 TABLET BY MOUTH ONCE DAILY active Not Available Not Available No t Available Crestor 40 mg tablet 05/27 completed Medicati on ID: [id number] Du ration Value: 30 Reason: () Brand Name: Crestor Send Method: E-Prescr ibed Sub s Allowed: subs OK Medic ationGen ericName : Crestor Not Available Not Available Not Available OneTouch Verio test strips USE 1 STRIP TO CHECK GLUCOSE ONCE DAILY DIRECTED active Not Available Not Available No t Available Eliquis 5 mg tablet 07/29 completed Medicati on ID: [id number] D uration Value: 23 Reason: () Brand [...] Not Available Not Available No t Available Jardiance 25 mg tablet TAKE 1 TABLET BY MOUTH ONCE DAILY active Not Available Not Available No t Available Baqsimi 3 mg/actuat ion nasal spray 3MG INTRANAS ALLY ONCE NEEDED FOR HYPOGLYC EMIA active Not Available Not Available No t Available BinaxNOW COVID-19 Ag Self Test kit TEST DIRECTED TODAY active Not Available Not Available No t [...] ICD10 Code Diagnosis IMO Codes Diagnosis Note [id number] GAMA POND MD [facility] [address] [address] 10/25/2024 10:40:19 10/25/2024 12:16:47 Sensorineural hearing loss of bilateral ears 264897315 H90.3 Audiologic al evaluation results:Ri ght ear:Normal [...] for cochlear implant technology . Migraine variants 295615 005 G43.809 Vertigo of central origin 35106677 H81.4 Overall doing well with regards to vestibular migraine symptoms. Refill for nortriptyl ine provided. [id number] CHARLENE DALTON, [facility] [place] [address] [facility],[place] [address] [place] [address] 10/25/2024 11:58:30 10/26/2024 06:59:40 Sensorineural hearing loss of bilateral ears 515509407 H90.3 Audiologic al evaluation results: Right ear: Normal sloping to moderately severe sensorineu ral hearing loss with fair word recognitio n. Left ear: Moderate sloping to severe sensorineu ral hearing loss with poor word recognitio n. Tympanomet ry: Right Ear:Type A Left Ear:Type A [id number] GAMA POND MD [facility] [address] [place] [address] 10/24/2025 10:28:46 10/24/2025 11:47:27 Sensorineural hearing loss of bilateral ears 910381691 H90.3 Audiometri c testing reviewed. Stable sensorineu ral hearing loss bilaterall y. She will continue to follow-up with her audiologis daniel Keith for hearing aid maintenanc e and audiometri c testing. Migraine variants 394627 005 G43.809 Vertigo of central origin 81242235 H81.4 Overall doing well with regards to vestibular migraine symptoms. Refill for nortriptyl ine provided, specifical ly with the BackOpst ical preparatio n which works well best for her Health Concerns Section Related Observation LastModified by Organization Detai ls LastModified Time None Recorded Concern Status LastModified by Organization Details LastModified Time None Recorded Advance Directives Directive None Recorded Payers Insurance Date Sequence Insurance Name Policy Number Policy Mueller Covered Member ID Mueller Member ID Guarantor Name 10/21/2025 2 [employer] (MEDICARE SUPPLEMENT) Iliana Kim [id number] Iliana Kim 10/21/2025 1 [place]: [employer] Iliana Kim [id number] Iliana Kim Notes Date Note Type Note Provider Name and Address Organization Details Recorded Time 10/25/2024 text/html 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 Currently treated with nortriptyline, 25 mg at bedtime. She reports that the only formulation of nortriptyline that works for her comes from [employer]. Overall doing well with regards to her balance. She will sometimes get flareup of dizziness if her grandson accidentally scares her, but otherwise she is doing okayCurrently using binaural amplification managed by Rosalie Keith in [place] GAMA POND MD [address] [facility],[address], [address], [facility] 10/25/2024 12:16:34 10/25/2024 text/html Audiological Evaluation HPIReported by PatientHearing LossFor hearing loss perceived, patient reportshearing loss in both ears (left ear worse).DizzinessFor balance symptoms reported, patient reportsdizziness.Use of amplification or other hearing devicesFor use of amplification or other hearing devices, patient reportshearing aid use in both ears. 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 Currently treated with nortriptyline, 25 mg at bedtime. She reports that the only formulation of nortriptyline that works for her comes from [employer]. Headaches and balance disturbance flared up in August likely due to a variety of different medication changes by her various physicians. Now currently not having headaches or balance issues.Currently using binaural amplification managed by Rosalie eKith in [place]. She comes in today with her audiogram by Rosalie Keith from summer which showed no change in the hearing compared to her last audiogram with us 1 year prior. GAMA POND MD [address] [facility],[place] [address], [place], [address], [facility] 10/24/2025 11:44:50 OBGyn Episode No OBEpisode recorded.
--- OUTSIDE RECORDS SUMMARY | 2025-11-15 12:48 | XMS_ITS | Clinical Summary ---
Author Organization 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 [address] [place] [address] Health Maintenance Due Date Last Done Comments [...] 07/28/2024 07/28/2023 Depression Screening 11/17/2024 COVID-19 Vaccine (2024-2 6 season) 2025 Influenza Vaccine (#1) 2025 [...] age to complete this topic Insurance MEDICARE [facility] Care Teams Sales Development Specialist Relationship Specialty Start Date End Date Megha Mooney MD [address] [place] [address] PCP - General Internal Medicine 01/24/16
--- OUTSIDE RECORDS SUMMARY | 2025-11-15 12:48 | XMS_ITS | Clinical Summary ---
Author Organization Formerly [facility] Prior to 04/16/[address] [place] [address] Care Team Providers Care Weld Technician Name Role Phone Megha Mooney MD Primary Care Provider [phone] Allergies Active Allergy Reactions Criticality Noted Date [...] edema 12/23/2017 Pulmonary embolism 12/30/2016 Hyperglycemia 12/30/2016 ARBAHAM (acute kidney injury) 12/30/2016 Hyponatremia 12/30/2016 Syncope [...] Advance Directives For more information, please contact: [phone] Latest Code Status on File Code Status Date Activated Date Inactivated Comments DNR 12/30/2016 10:56 PM 01/03/2017 5:59 PM This code status was ascertained in the following way: discussion with patient. Code Status History Code Status Date Activated Date Inactivated Comments Full Code 12/30/2016 7:37 PM 12/30/2016 10:56 PM This code status was ascertained in the following way: discussion with patient. Care Teams Weld Technician Relationship Specialty Start Date End Date Megha Mooney MD [address] [place] [address] PCP - General Internal Medicine 01/24/16
--- OUTSIDE RECORDS SUMMARY | 2025-11-15 12:48 | XMS_ITS | Continuity of Care Document ---
Author Organization [facility] Address [address] [facility] [address] [place], [place] Phone [phone] Care Team Providers Care Anatomy Professor Name Role Phone No Primary Provider Care Team Information Receiv er Unavailable ALLISON FALCON M.D. Care Team Information Rec eiver Unavailable No Primary Provider Primary Care Physician Unava ilable Social History Type Date Description Comments Sex Female Sex Unknown
--- OUTSIDE RECORDS SUMMARY | 2025-11-15 12:48 | XMS_ITS | Clinical Summary ---
Author Organization [facility] Address [address] [facility] [address] [place] [address] Phone Care Team Providers Care Pump Assembler Name Role Phone Megha Mooney MD Primary Care Provider [phone] Allergies Active Allergy Reactions Criticality Noted Date [...] this topic Insurance [id number] [place] [address] [facility] Medicare [id number] [place] [address] [facility] Medicare Care Teams Pump Assembler Relationship Specialty Start Date End Date Megha Mooney MD [address] [place] [address], [address] [place] [address] PCP - General 11/27/20
--- OUTSIDE RECORDS SUMMARY | 2025-11-15 12:48 | XMS_ITS | Continuity of Care Document ---
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 Plan of Treatment Reminders Order Date Submit Date Provider Last Modified By Organization Details Last Modified Time Details Appointments Dizzy Follow Up 10 2025 10:40A M GAMA POND MD Not available Not available Not available Lab None recorded. Referral None recorded. Procedures None recorded. Surgeries None recorded. Imaging None recorded. Medication Orders nortripty line 25 mg capsule 2024 025 [facility], [address] [place] [address], [place], [address], 10/24/2025 11:43:07 Patient TargetsNo targets recorded. Patient InstructionsNo instructions recorded. Reason for Referral None Reported. Results Created Date Observation Date Name Description Value Unit Range Abnormal Flag Note LastModifiedBy Organization Detail LastModifiedTime 10/25/2005/13/2025 audio gram No observ ation record ed. [email or web address] Not Available 07/2025 13:16:05 Result Notes None recorded. Problems Name Problem SNOMED Code Status Onset Date Resolution Date Notes Provider Name and Address Organization Details Recorded Time Migraine variants 032126308 Active 2013 Migraine variant; Note: Date Diagnosed : 4 2:39 PM (346.20) Not Available [facility] 4 02:21:29 Asymmetri drew sensorine ural hearing loss 645282556 Active 2013 Sensorine ural hearing los asymmetri c; Note: Date Diagnosed : 4 2:39 PM (389.16) Not Available [facility] 4 02:22:03 Subjectiv e tinnitus 35275892 Active 2013 Subjectiv e tinnitus; Note: Date Diagnosed : 4 2:39 PM (388.31) Not Available [facility] 4 02:21:44 Migraine 44243683 Active 2015 Other migraine, not intractab le, without status migrainos us; Note: Date Diagnosed : 03/26/2016 9:45 AM (G43.809) [mapped from ICD9 code: 346.20] Not Available [facility] 4 02:21:43 Tinnitus of right ear [id number] 08 Active 2015 Tinnitus, right ear; Note: Date Diagnosed : 03/26/2016 9:45 AM (H93.11) [mapped from ICD9 code: 388.31] Not Available [facility] 4 02:22:03 Vertigo of central origin NOS Active 2015 Vertigo of central origin, unspecifi ed ear; Note: Date Diagnosed : 03/26/2016 9:51 AM (H81.49) Not Available [facility] 4 02:22:06 Sensorine ural hearing loss 32683578 Active 2015 Sensorine ural hearing loss, unilatera l, left ear, with unrestric james hearing on the contralat eral side; Note: Date Diagnosed : 03/26/2016 9:51 AM (H90.42) Not Available [facility] 4 02:21:46 M ni re's disease 67454850 Active 2016 Meniere's disease, left ear; Note: Date Diagnosed : 05/27/2017 1:51 PM (H81.02) Not Available [facility] 4 02:22:09 Sensorine ural hearing loss of bilateral ears 929075263 Active 2016 Sensorine ural hearing loss, bilateral ; Note: Date Diagnosed : 05/27/2017 1:20 PM (H90.3) Not Available [facility] 4 02:22:01 Vertigo of central origin 79655125 Active 2021 Vertigo of central origin; Note: Date Diagnosed : 4 2:39 PM (386.2) ; Start Date : 4 Vertigo of central origin; Note: Date Diagnosed : 04/12/2022 12:42 PM (H81.4) Not Available [facility] 4 02:21:31 Sudden idiopathi c hearing loss 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 Procedures Surgical History Date Name Laterality Status Provider Name and Address Organization Details Recorded Time 10/25/2024 Comp Audio with Tymps - 23985 & 86193 completed CHARLENE DALTON, [address], [address], [facility] 10/25/2024 11:59:01 Imaging Results None recorded. Procedure Notes None recorded. Medical Equipment None Reported. Allergies Allergen ID Allergen Name Allergen Category Reaction Reaction Severity Criticality Documentation Date Start Date Code Code System Note Provider Name and Address Organization Details Recorded Time 833862 kiwi fruit allergeni c extract food,medi cation hives Not available Not available 10/23/20252016 01035 26 RxNorm Not Available [employer] - prod 21:16:20 457826 ethanol food,medi cation hives other Not available Not available Not available 10/23/20252016 448 RxNorm Not Available [employer] - prod 21:16:24 Medications Name Sig Start Date Stop Date Status Note LastModified by Organization Details LastModified Time metformin 500 mg tablet TAKE 1 TABLET BY MOUTH TWICE DAILY active Not Available Not Available No t Available prednison e 10 mg tablet 10/30 completed Medicati on ID: [id number] P rescribe d By Name: JOYCE Clark [...] mg capsule 08/25 completed Medicati on ID: [id number] D uration Value: 30 Prescri bed By Name: JOYCE Clakr nd Name: nortript yline Se nd Method: E-Prescr ibed Sub s Allowed: subs OK Specshani al Instruct ion: Take 1 cap by mouth once a day Medi cationGe nericNam e: nortript yline Not Available Not Available Not Available lisinopri l 20 mg-hydroc hlorothia zide 25 mg tablet 05/27 completed Medicati on ID: [id number] Du ration Value: 90 Reason: () Brand [...] layed release 2018 active Medicati on ID: [id number] B rand Name: Aspir-81 Send Method: E-Prescr ibed Sub s Allowed: subs OK Medic ationGen ericName : Aspir-81 Not Available Not Available Not Available lisinopri l 2.5 mg tablet 04/12 completed Medicati on ID: [id number] D uration Value: 90 Brand Name: lisinopr il Send Method: E-Prescr ibed Sub s Allowed: subs OK Medic ationGen ericName : lisinopr il Not Available Not Available Not Available rosuvasta tin 20 mg tablet TAKE 1 TABLET BY MOUTH ONCE DAILY active Not Available Not Available No t Available Crestor 40 mg tablet 05/27 completed Medicati on ID: [id number] Du ration Value: 30 Reason: () Brand Name: Crestor Send Method: E-Prescr ibed Sub s Allowed: subs OK Medic ationGen ericName : Crestor Not Available Not Available Not Available OneTouch Verio test strips USE 1 STRIP TO CHECK GLUCOSE ONCE DAILY DIRECTED active Not Available Not Available No t Available Eliquis 5 mg tablet 07/29 completed Medicati on ID: [id number] D uration Value: 23 Reason: () Brand [...] ICD10 Code Diagnosis IMO Codes Diagnosis Note [id number] GAMA POND MD [facility] [address] [address] 10/24/2025 10:28:46 10/24/2025 11:47:27 Sensorineural hearing loss of bilateral ears 307743798 H90.3 Audiometri c testing reviewed. Stable sensorineu ral hearing loss bilaterall y. She will continue to follow-up with her audiologis t Rosalie Keith for hearing aid maintenanc e and audiometri c testing. Migraine variants 018110 005 G43.809 Vertigo of central origin 32306939 H81.4 Overall doing well with regards to vestibular migraine symptoms. Refill for nortriptyl ine provided, specifical ly with the Cearnat ical preparatio n which works well best for her Health Concerns Section Related Observation LastModified by Organization Detai ls LastModified Time None Recorded Concern Status LastModified by Organization Details LastModified Time None Recorded Payers Encounter Date Sequence Insurance Name Policy Number Policy Mueller Covered Member ID Mueller Member ID Guarantor Name 10/24/2025 2 [employer] (MEDICARE SUPPLEMENT) Iliana Kim [id number] Iliana Kim 10/24/2025 1 [place] [employer] Iliana Kim [id number] Iliana Kim Notes Date Note Type Note Provider Name and Address Organization Details Recorded Time 10/24/2025 text/html 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 Currently treated with nortriptyline, 25 mg at bedtime. She reports that the only formulation of nortriptyline that works for her comes from [facility]. Headaches and balance disturbance flared up in August likely due to a variety of different medication changes by her various physicians. Now currently not having headaches or balance issues.Currently using binaural amplification managed by Rosalie Keith in [place]. She comes in today with her audiogram by Rosalie Keith from summer which showed no change in the hearing compared to her last audiogram with us 1 year prior. GAMA POND MD [address] [place] [address], [address], [place] - [facility] 10/24/2025 11:44:50 OBGyn Episode No OBEpisode recorded.
== END 2025-11-15 10:39 | disposition home or self-care (01) ==
LOC: HO.HKAS 09:52
PROVIDERS: PCP Internal Medicine; Visit Provider Internal Medicine Nephrology
DX: N18.31 Chronic kidney disease, stage 3a (principal)
CPT/HCPCS: 99214

== ENCOUNTER 2025-11-15 09:51 | Outpatient (REF) | payer MEDICARE, SELFPAY ==
[2025-11-15 14:44] LABS: Protein/Creatinine Ratio, Ur 0.32 (<0.2); Total Protein Urine Random 38 mg/dL (<12)
[2025-11-15 15:00] LABS: Anion Gap 13 (12-20); Blood Urea Nitrogen 20 mg/dL (9-16); Carbon Dioxide 23 mmol/L (22-29); Chloride 108 mmol/L (96-108); Estimated Glomerular Filt Rate 48; Potassium 3.8 mmol/L (3.3-5.1); Sodium 140 mmol/L (135-145)
== END 2025-11-15 09:52 ==
LOC: HO.HKASLDS 09:51
PROVIDERS: PCP Internal Medicine; Visit Provider Internal Medicine Nephrology
DX: E11.22 Type 2 diabetes mellitus with diabetic chronic kidney disease (principal); N18.31 Chronic kidney disease, stage 3a; Z79.899 Other long term (current) drug therapy; Z79.85 Long-term (current) use of injectable non-insulin antidiabetic drugs
CPT/HCPCS: 36415; 80051; 82565; 82570; 83036; 84156; 84520